=== PATIENT | female | born 1955 | race Caucasian/White ===

== ENCOUNTER 2016-11-18 17:11 | Inpatient (IN) | payer MEDICARE, MEDICAID ==
[2016-11-18] MEDS ORDERED: HYDROMORPHONE INJ 2 MG/ML DISP.SYRIN IV ONE ×2 (17:30→19:30)
[2016-11-18] MEDS ORDERED: IV NS 0.9% 1,000 ML BAG IV ONE ×3 (17:30→21:30)
[2016-11-18] MEDS ORDERED: ONDANSETRON HCL/PF 4 MG/2 ML VIAL IVP ONE (17:30)
[2016-11-18] MEDS ORDERED: ONDANSETRON HCL/PF 4 MG/2 ML VIAL ONE (17:48)
[2016-11-18] MEDS ORDERED: HYDROMORPHONE 1 MG/1 ML DISP.SYRIN ONE ×2 (17:48→19:05)
[2016-11-18] MEDS ORDERED: IV SET PRIMARY 1 EA INFUS.SET MC ONE (17:48)
[2016-11-18] MEDS ORDERED: IV NS 0.9% 1,000 ML ONE ×3 (17:48→21:58)
[2016-11-18] MEDS ORDERED: DILTIAZEM HCL 25 MG IV ONE (17:49)
[2016-11-18] MEDS ORDERED: PIPERACILLIN /TAZOBACTAM 3.375 G in IV D5W 50 ML IV ONE (19:00)
[2016-11-18] MEDS ORDERED: IV SET PRIMARY PUMP SET 1 EA INFUS.SET MC ONE ×2 (19:08→21:59)
[2016-11-18] MEDS ORDERED: SIMV40TA5 PO (19:10)
[2016-11-18] MEDS ORDERED: VENL150C58 PO (19:10)
[2016-11-18] MEDS ORDERED: ALPR0.5T8 PO (19:10)
[2016-11-18] MEDS ORDERED: OMEP20CA10 PO (19:10)
[2016-11-18] MEDS ORDERED: ATEN25TA PO (19:10)
[2016-11-18] MEDS ORDERED: OXYC1TAB72 PO (19:10)
[2016-11-18] MEDS ORDERED: TRAZ-144 PO (19:10)
[2016-11-18] MEDS ORDERED: ACETAMINOPHEN 325 MG TABLET PO PRN (21:30)
[2016-11-18] MEDS ORDERED: ONDANSETRON HCL/PF 4 MG/2 ML VIAL IVP PRN (21:30)
[2016-11-18] MEDS ORDERED: POTASSIUM CL. PREMIX PERIPHER. 50 ML IV SCH (21:30)
[2016-11-18] MEDS ORDERED: NICOTINE PATCH (21MG) 21 MG PATCH.TD24 TD ONE (21:56)
[2016-11-18] MEDS ORDERED: POTASSIUM CL. PREMIX PERIPHER. 50 ML ONE (21:56)
[2016-11-18] MEDS ORDERED: MORPHINE SULFATE INJ 2 MG/ML DISP.SYRIN ONE (21:57)
[2016-11-18] MEDS ORDERED: SECONDARY IV SET 1 EA INFUS.SET MC ONE ×2 (21:58→23:59)
[2016-11-18] MEDS ORDERED: ATENOLOL 25 MG TABLET ONE (21:58)
[2016-11-18] MEDS: ATENOLOL 25 MG TABLET PO SCH (22:20)
[2016-11-18] MEDS: NICOTINE PATCH (21MG) 21 MG PATCH.TD24 TD SCH (22:21)
[2016-11-18] MEDS: MORPHINE SULFATE INJ 2 MG/ML DISP.SYRIN IV PRN (22:24)
[2016-11-18] MEDS ORDERED: METRONIDAZOLE 500MG/ NS 100ML 100 ML IV ONE (22:35)
[2016-11-19] MEDS ORDERED: PIPERACILLIN /TAZOBACTAM 3.375 G in IV D5W 50 ML IV SCH ×2
[2016-11-19] MEDS ORDERED: PIPERACILLIN /TAZOBACTAM 3.375 G VIAL IV ONE ×2 (00:59)
[2016-11-19] MEDS ORDERED: IV D5W 50 ML IV ONE (01:47)
[2016-11-19] MEDS ORDERED: METRONIDAZOLE 500MG/ NS 100ML 100 ML IV ONE (06:05)
[2016-11-19] MEDS ORDERED: MORPHINE SULFATE INJ 2 MG/ML DISP.SYRIN ONE (06:45)
[2016-11-19] MEDS: MORPHINE SULFATE INJ 2 MG/ML DISP.SYRIN IV PRN (06:51)
[2016-11-19] MEDS: METRONIDAZOLE 500MG/ NS 100ML 100 ML IV SCH ×4 (06:52→21:06)
[2016-11-19] MEDS ORDERED: DIATR MEGLU/DIATRIZOATE SODIUM 30 ML BOTTLE (GASTROGRAPHIN) ONE (08:35)
[2016-11-19] MEDS ORDERED: CT SWABBABLE VALVE TRANS SET 1 EA INFUS.SET MC ONE (10:55)
[2016-11-19] MEDS: ATENOLOL 25 MG TABLET PO SCH (10:55)
[2016-11-19] MEDS ORDERED: IV NS 0.9% 250 ML IV ONE (10:55)
[2016-11-19] MEDS ORDERED: IOHEXOL-300 100 ML VIAL IV ONE (10:55)
[2016-11-19] MEDS: PANTOPRAZOLE 40 MG VIAL IV SCH (10:55)
[2016-11-19] MEDS: NICOTINE PATCH (21MG) 21 MG PATCH.TD24 TD SCH (10:56)
[2016-11-19] MEDS: PIPERACILLIN /TAZOBACTAM 3.375 G in IV D5W 50 ML IV SCH ×2 (12:56→17:04)
[2016-11-19] MEDS: LORAZEPAM INJ 2 MG/ML VIAL IVP PRN (14:06)
[2016-11-19] MEDS ORDERED: IV SET PRIMARY PUMP SET 1 EA INFUS.SET MC ONE (19:42)
[2016-11-19] MEDS: IV LR 1000 ML 1,000 ML IV SCH (20:40)
[2016-11-19] MEDS: KETOROLAC TROMETHAMINE INJ 30 MG/ML VIAL IV PRN (21:06)
[2016-11-19] MEDS ORDERED: SECONDARY IV SET 1 EA INFUS.SET MC ONE ×2 (21:18→23:56)
[2016-11-20] MEDS: PIPERACILLIN /TAZOBACTAM 3.375 G in IV D5W 50 ML IV SCH ×5 (00:04→23:30)
[2016-11-20] MEDS: IV LR 1000 ML 1,000 ML IV SCH (03:16)
[2016-11-20] MEDS: METRONIDAZOLE 500MG/ NS 100ML 100 ML IV SCH ×3 (04:19→21:28)
[2016-11-20] MEDS: KETOROLAC TROMETHAMINE INJ 30 MG/ML VIAL IV PRN ×2 (04:19→19:03)
[2016-11-20] MEDS: ATENOLOL 25 MG TABLET PO SCH (09:00)
[2016-11-20] MEDS: PANTOPRAZOLE 40 MG VIAL IV SCH (09:14)
[2016-11-20] MEDS: LORAZEPAM INJ 2 MG/ML VIAL IVP PRN (14:54)
[2016-11-20] MEDS: VENLAFAXINE XR 37.5 MG CAP.SR.24H PO SCH (16:24)
[2016-11-20] MEDS: IV LR 1000 ML 1,000 ML IV PRN (16:25)
[2016-11-20] MEDS: NICOTINE PATCH (21MG) 21 MG PATCH.TD24 TD SCH (16:25)
[2016-11-21] MEDS: KETOROLAC TROMETHAMINE INJ 30 MG/ML VIAL IV PRN ×2 (01:31→18:02)
[2016-11-21] MEDS ORDERED: IV LR 1000 ML 1,000 ML ONE (05:39)
[2016-11-21] MEDS: IV LR 1000 ML 1,000 ML IV PRN (05:45)
[2016-11-21] MEDS: METRONIDAZOLE 500MG/ NS 100ML 100 ML IV SCH ×3 (05:45→21:14)
[2016-11-21] MEDS: PIPERACILLIN /TAZOBACTAM 3.375 G in IV D5W 50 ML IV SCH ×4 (06:50→23:56)
[2016-11-21] MEDS: VENLAFAXINE XR 37.5 MG CAP.SR.24H PO SCH ×2 (09:00→09:20)
[2016-11-21] MEDS: PANTOPRAZOLE 40 MG VIAL IV SCH (09:19)
[2016-11-21] MEDS: ATENOLOL 25 MG TABLET PO SCH (09:20)
[2016-11-21] MEDS: NICOTINE PATCH (21MG) 21 MG PATCH.TD24 TD SCH (09:20)
[2016-11-21] MEDS ORDERED: INDOMETHACIN 50 MG SUPP.RECT ONE (09:32)
[2016-11-21] MEDS ORDERED: IOHEXOL 240MG/ML 100 ML IV ONE (09:32)
[2016-11-21] MEDS ORDERED: FENTANYL PF 250MCG/5ML AMPUL ONE (09:55)
[2016-11-21] MEDS ORDERED: ROCURONIUM BROMIDE 50 MG/5 ML ONE (09:56)
[2016-11-21] MEDS ORDERED: SUCCINYLCHOLINE CHLORIDE 20 MG/ML VIAL ONE (09:56)
[2016-11-21] MEDS ORDERED: SECONDARY IV SET 1 EA INFUS.SET MC ONE ×2 (13:41→22:38)
[2016-11-21] MEDS: POTASSIUM CHLORIDE 20 MEQ TAB.PRT.SR PO SCH ×3 (13:42→17:14)
[2016-11-21] MEDS: Magnesium 1GM/D5W 100ML PREMIX 100 ML IV SCH ×3 (14:43→18:57)
[2016-11-21] MEDS: LORAZEPAM INJ 2 MG/ML VIAL IVP PRN ×2 (14:59→23:56)
[2016-11-22] MEDS: METRONIDAZOLE 500MG/ NS 100ML 100 ML IV SCH ×3 (04:33→21:04)
[2016-11-22] MEDS: PIPERACILLIN /TAZOBACTAM 3.375 G in IV D5W 50 ML IV SCH ×3 (05:13→17:53)
[2016-11-22] MEDS ORDERED: SUCCINYLCHOLINE CHLORIDE 20 MG/ML VIAL ONE (06:54)
[2016-11-22] MEDS ORDERED: FENTANYL PF 250MCG/5ML AMPUL ONE (06:54)
[2016-11-22] MEDS ORDERED: D5W IV SCH (07:00)
[2016-11-22] MEDS ORDERED: POTASSIUM PHOSPHATE MM IV SCH (07:00)
[2016-11-22] MEDS ORDERED: Magnesium 1GM/D5W 100ML PREMIX 100 ML IV SCH (07:30)
[2016-11-22] MEDS ORDERED: BUPIVACAINE 0.25% 75 MG/30 ML VIAL ONE (07:58)
[2016-11-22] MEDS ORDERED: LIDOCAINE 0.5% HCL 50 ML VIAL ONE (07:58)
[2016-11-22] MEDS: POTASSIUM PHOSPHATE MM 15 MMOL in IV D5W 250 ML IV SCH ×2 (08:00→15:24)
[2016-11-22] MEDS: POTASSIUM CL. PREMIX PERIPHER. 50 ML IV SCH ×3 (08:00→10:00)
[2016-11-22] MEDS: VENLAFAXINE XR 37.5 MG CAP.SR.24H PO SCH (08:56)
[2016-11-22] MEDS: PANTOPRAZOLE 40 MG VIAL IV SCH (08:56)
[2016-11-22] MEDS: ATENOLOL 25 MG TABLET PO SCH (08:57)
[2016-11-22] MEDS ORDERED: FENTANYL PF 100MCG/2ML AMPUL ONE ×2 (09:23→12:34)
[2016-11-22] MEDS ORDERED: ROCURONIUM BROMIDE 50 MG/5 ML ONE (09:23)
[2016-11-22] MEDS ORDERED: SEVOFLURANE 250 ML BOTTLE IH ONE (09:52)
[2016-11-22] MEDS ORDERED: CELLULOSE,OXIDIZED 1 EACH EACH MC ONE ×3 (11:03→11:08)
[2016-11-22] MEDS ORDERED: CELLULOSE,OXIDIZED 1 PKT EACH MC ONE (11:04)
[2016-11-22] MEDS ORDERED: HEMOSTATIC MATRIX 10 ML 1 EACH PAD MC ONE (11:06)
[2016-11-22] MEDS ORDERED: KETOROLAC TROMETHAMINE INJ 30 MG/ML VIAL IV ONE (12:24)
[2016-11-22] MEDS ORDERED: DEXAMETHASONE SOD PHOSPHATE 4 MG/ML VIAL IV ONE (12:24)
[2016-11-22] MEDS ORDERED: LIDOCAINE 100MG/5ML DISP SYR IV ONE (12:24)
[2016-11-22] MEDS ORDERED: ROCURONIUM BROMIDE 100 MG/10 ML VIAL IV ONE (12:24)
[2016-11-22] MEDS ORDERED: hydrALAZINE HCL IV 20 MG VIAL IV ONE (12:24)
[2016-11-22] MEDS ORDERED: PROPOFOL 200 MG/20 ML VIAL IV ONE (12:24)
[2016-11-22] MEDS ORDERED: ONDANSETRON HCL/PF 4 MG/2 ML VIAL IVP ONE (12:24)
[2016-11-22] MEDS ORDERED: HYDROMORPHONE INJ 2 MG/ML DISP.SYRIN ONE (12:28)
[2016-11-22] MEDS ORDERED: HYDROMORPHONE MDV 30 MG in IV NS 0.9% 15 ML, PCA TOTAL VOLUME 1 BAG IV PRN ×3 (13:30)
[2016-11-22] MEDS ORDERED: NALOXONE HCL 0.4 MG/ML AMPUL IV PRN (13:30)
[2016-11-22] MEDS ORDERED: SECONDARY IV SET 1 EA INFUS.SET MC ONE (13:38)
[2016-11-22] MEDS ORDERED: SET PCA INFUSE SET 1 EA INFUS.SET MC ONE ×2 (14:22→14:23)
[2016-11-22] MEDS ORDERED: IV NS 0.9% 250 ML IV ONE (14:24)
[2016-11-22] MEDS: NICOTINE PATCH (21MG) 21 MG PATCH.TD24 TD SCH (16:21)
[2016-11-23] MEDS: IV LR 1000 ML 1,000 ML IV PRN ×2 (00:14→08:40)
[2016-11-23] MEDS: PIPERACILLIN /TAZOBACTAM 3.375 G in IV D5W 50 ML IV SCH ×4 (00:22→20:28)
[2016-11-23] MEDS ORDERED: SECONDARY IV SET 1 EA INFUS.SET MC ONE ×2 (04:52→20:24)
[2016-11-23] MEDS: METRONIDAZOLE 500MG/ NS 100ML 100 ML IV SCH ×3 (04:58→21:43)
[2016-11-23] MEDS: PANTOPRAZOLE 40 MG VIAL IV SCH (08:32)
[2016-11-23] MEDS: VENLAFAXINE XR 37.5 MG CAP.SR.24H PO SCH (08:33)
[2016-11-23] MEDS: ATENOLOL 25 MG TABLET PO SCH (08:33)
[2016-11-23] MEDS: NICOTINE PATCH (21MG) 21 MG PATCH.TD24 TD SCH (08:33)
[2016-11-23] MEDS: HEPARIN SODIUM, PORCINE 5000 UNITS/1 ML VIAL SQ SCH ×2 (08:52→21:45)
[2016-11-23] MEDS ORDERED: POTASSIUM CHLORIDE 20 MEQ TAB.PRT.SR PO SCH (12:00)
[2016-11-23] MEDS: Magnesium 1GM/D5W 100ML PREMIX 100 ML IV SCH ×2 (12:12→13:19)
[2016-11-23] MEDS ORDERED: MORPHINE SULFATE INJ 2 MG/ML DISP.SYRIN IV PRN (12:30)
[2016-11-23] MEDS: KETOROLAC TROMETHAMINE INJ 30 MG/ML VIAL IV PRN (15:17)
[2016-11-23] MEDS: ALPRAZOLAM 0.25 MG TABLET PO PRN ×2 (16:58→22:36)
[2016-11-23] MEDS: oxyCODONE IR immediate release 5 MG CAPSULE PO PRN (22:37)
[2016-11-24] MEDS: PIPERACILLIN /TAZOBACTAM 3.375 G in IV D5W 50 ML IV SCH ×5 (01:40→23:15)
[2016-11-24] MEDS: KETOROLAC TROMETHAMINE INJ 30 MG/ML VIAL IV PRN ×2 (01:41→12:05)
[2016-11-24] MEDS: METRONIDAZOLE 500MG/ NS 100ML 100 ML IV SCH ×3 (05:07→21:00)
[2016-11-24] MEDS: oxyCODONE IR immediate release 5 MG CAPSULE PO PRN (06:59)
[2016-11-24] MEDS: HEPARIN SODIUM, PORCINE 5000 UNITS/1 ML VIAL SQ SCH ×2 (08:53→22:18)
[2016-11-24] MEDS: PANTOPRAZOLE 40 MG VIAL IV SCH (08:53)
[2016-11-24] MEDS: NICOTINE PATCH (21MG) 21 MG PATCH.TD24 TD SCH (08:53)
[2016-11-24] MEDS: VENLAFAXINE XR 150 MG CAP.SR.24H PO SCH (08:54)
[2016-11-24] MEDS: ATENOLOL 25 MG TABLET PO SCH (08:54)
[2016-11-24] MEDS ORDERED: VENLAFAXINE XR 150 MG CAP.SR.24H PO SCH (09:00)
[2016-11-24] MEDS: MENTHOL/CETYLPYRD (CEPACOL) 1 LOZ LOZENGE PO PRN (21:00)
[2016-11-24] MEDS: HYDROCODONE/APAP 5/325MG 1 EACH TABLET PO PRN (21:01)
[2016-11-24] MEDS ORDERED: SECONDARY IV SET 1 EA INFUS.SET MC ONE ×2 (21:03→23:09)
[2016-11-24] MEDS: ALPRAZOLAM 0.25 MG TABLET PO PRN (22:16)
[2016-11-25] MEDS: MENTHOL/CETYLPYRD (CEPACOL) 1 LOZ LOZENGE PO PRN ×3 (02:10→10:42)
[2016-11-25] MEDS: HYDROCODONE/APAP 5/325MG 1 EACH TABLET PO PRN ×2 (02:11→06:43)
[2016-11-25] MEDS: METRONIDAZOLE 500MG/ NS 100ML 100 ML IV SCH (04:05)
[2016-11-25] MEDS: PIPERACILLIN /TAZOBACTAM 3.375 G in IV D5W 50 ML IV SCH (05:18)
[2016-11-25] MEDS: VENLAFAXINE XR 150 MG CAP.SR.24H PO SCH (08:15)
[2016-11-25] MEDS: PANTOPRAZOLE 40 MG VIAL IV SCH (08:16)
[2016-11-25] MEDS: NICOTINE PATCH (21MG) 21 MG PATCH.TD24 TD SCH (08:16)
[2016-11-25] MEDS: ATENOLOL 25 MG TABLET PO SCH (08:16)
[2016-11-25] MEDS: HEPARIN SODIUM, PORCINE 5000 UNITS/1 ML VIAL SQ SCH (08:17)
[2016-11-25] MEDS ORDERED: POTASSIUM CHLORIDE 20 MEQ TAB.PRT.SR PO SCH (11:30)
== END 2016-11-25 14:57 | disposition home or self-care (01) | DRG 415 ==
DX: K80.42 Calculus of bile duct with acute cholecystitis without obstruction (principal); E44.0 Moderate protein-calorie malnutrition; E66.9 Obesity, unspecified; E78.5 Hyperlipidemia, unspecified; E87.6 Hypokalemia; F17.210 Nicotine dependence, cigarettes, uncomplicated; I10 Essential (primary) hypertension; Z59.0 Homelessness; M54.5 Low back pain; G89.29 Other chronic pain; E66.01 Morbid (severe) obesity due to excess calories; E11.9 Type 2 diabetes mellitus without complications; F41.9 Anxiety disorder, unspecified; F32.9 Major depressive disorder, single episode, unspecified; I27.2 Other secondary pulmonary hypertension; K21.9 Gastro-esophageal reflux disease without esophagitis; I08.0 Rheumatic disorders of both mitral and aortic valves; Z53.31 Laparoscopic surgical procedure converted to open procedure; Z68.39 Body mass index [BMI] 39.0-39.9, adult; Z87.442 Personal history of urinary calculi; Z96.659 Presence of unspecified artificial knee joint

== ENCOUNTER → 2019-06-01 | Emergency (ER) | payer MEDICAID, MEDICARE, OTHER ==
[~2019-06-01] MED LIST: ACETAMINOPHEN W/ CODEINE#3 1 EA TABLET ONE; ACETAMINOPHEN W/ CODEINE#3 1 EA TABLET PO ONE; ALPR0.5T8 PO; ATEN25TA PO; IBUPROFEN 600 MG TABLET PO ONE; OMEP20CA11 PO; OXYC-121 PO; SIMV40TA5 PO; TRAZ-182 PO; VENL150C58 PO
== END | disposition home or self-care (01) ==
DX: S83.8X2A Sprain of other specified parts of left knee, initial encounter (principal); S63.592A Other specified sprain of left wrist, initial encounter; I10 Essential (primary) hypertension; E78.00 Pure hypercholesterolemia, unspecified; Z96.649 Presence of unspecified artificial hip joint; Z90.710 Acquired absence of both cervix and uterus; Z90.49 Acquired absence of other specified parts of digestive tract; Z98.890 Other specified postprocedural states; W01.0XXA Fall on same level from slipping, tripping and stumbling without subsequent striking against object, initial encounter; Y93.89 Activity, other specified; Y92.480 Sidewalk as the place of occurrence of the external cause; Y99.8 Other external cause status

== ENCOUNTER 2021-05-05 12:02 | Inpatient (IN) | payer OTHER ==
[~2021-05-05] VITALS: Ht 167.6 cm; Wt 110.0 kg
[~2021-05-05 12:02] MED LIST changes: -ACETAMINOPHEN W/ CODEINE#3 1 EA TABLET ONE; -ACETAMINOPHEN W/ CODEINE#3 1 EA TABLET PO ONE; -IBUPROFEN 600 MG TABLET PO ONE; -OMEP20CA11 PO; +OMEP20CA15 PO; +SIMV-49 PO; -SIMV40TA5 PO
[2021-05-05] MEDS ORDERED: ONDANSETRON HCL/PF 4 MG/2 ML VIAL ONE ×2 (12:46→15:43)
--- NOTE | 2021-05-05 12:57 | NUR ---
SHERWINIENEfra FROM HOME TO ER BED 14. AAOX4. NOT IN RESP DISTRESS. AMBULATORY. CAME IN FOR DIARRHEA, NAUSEA AND POOR APETITE FOR THE PAST MONTH. PT REPORTS THAT SHE GET DAILY DIARRHEA AND NOW REPORT BEING NAUSEOUS. WAS AT THE BEDSIDE FOR EVAL. ORDERS RECEIVED, NOTED AND CARIRIED OUT. IV LINE ESTABLISHED ON THE LFA 20G, BLOOD DRAWN AND GIVEN TO PHLEB.
[2021-05-05 12:59] LABS: BASOPHILS # (AUTO) 0.1 K/uL (0.0-0.2); BASOPHILS % (AUTO) 0.7 % (0.0-2.0); EOSINOPHILS % (AUTO) 0.1 % (0.0-6.0); HEMATOCRIT 43 % (33-45); HEMOGLOBIN 14.1 g/dL (11.5-14.8); LYMPHOCYTES % (AUTO) 20.2 % (20.0-44.0); MEAN CORPUSCULAR HGB CONC 33 g/dl (31.0-36.0); MEAN CORPUSCULAR VOLUME 89 fL (82-100); MONOCYTES # (AUTO) 0.8 K/uL (0.1-1.30); MONOCYTES % (AUTO) 5.5 % (2.0-12.0); NEUTROPHILS # (AUTO) 10.9 K/uL (1.8-8.9); NEUTROPHILS % (AUTO) 73.5 % (43.0-81.0); PLATELET COUNT (AUTO) 272 K/uL (150-450); RED BLOOD CELL COUNT(AUTO) 4.88 MIL/uL (4.0-5.2); WHITE BLOOD COUNT (AUTO) 14.8 K/uL (4.3-11.0)
[2021-05-05] MEDS ORDERED: IV NS 0.9% 1,000 ML BAG IV ONE ×2 (13:00→15:30)
[2021-05-05] MEDS ORDERED: ONDANSETRON HCL/PF 4 MG/2 ML VIAL IVP ONE (13:00)
[2021-05-05 13:05] LABS: CALCIUM, SERUM 8.6 mg/dL (8.5-10.1); CARBON DIOXIDE 16 mmol/L (21-32); CHLORIDE 105 mmol/L (98-107); CREATININE 3.5 mg/dL (0.6-1.3); GLUCOSE 88 mg/dL (74-106); POTASSIUM 4.7 mmol/L (3.5-5.1); SODIUM SERUM 140 mmol/L (136-145); UREA NITROGEN, BLOOD 61 mg/dL (7-18)
[2021-05-05 13:11] LABS: ALANINE AMINOTRANSFERASE 42 U/L (12-78); ALKALINE PHOSPHATASE 74 U/L (46-116); ASPARTATE AMINOTRANSFERASE 32 U/L (15-37); BILIRUBIN,DIRECT 0.1 mg/dL (0.0-0.2); BILIRUBIN,TOTAL 0.5 mg/dL (0.2-1.0); LIPASE 134 U/L (73-393); TOTAL PROTEIN, SERUM 7.9 g/dL (6.4-8.2)
--- NOTE | 2021-05-05 14:11 | NUR ---
pt still have no urge to have a BM
--- NOTE | 2021-05-05 14:20 | NUR ---
MADE AWARE THAT BP IS 92/48.
[2021-05-05] MEDS ORDERED: LISI20TA30 PO (15:14)
[2021-05-05] MEDS ORDERED: AMLO-213 PO (15:14)
[2021-05-05] MEDS ORDERED: METF-442 PO (15:14)
[2021-05-05 15:15] LABS: ABG BASE EXCESS -10.9 mmol/L; ABG OXYGEN SATURATION 23.8 % (92.0-98.5); ABG PCO2 43.5 mmHg (35.0-45.0); ABG PH 7.202 (7.350-7.450); COHb 1.5 % (0.5-1.5); MetHb 1.9 % (0.0-1.5); SITE, ABG Other; VENT MODE, BG VBG
--- NOTE | 2021-05-05 15:38 | NUR ---
STOOL SPECIMEN SENT TO LAB
[2021-05-05] MEDS ORDERED: PIPERACILLIN /TAZOBACTAM 3.375 G VIAL IV ONE (15:43)
--- NOTE | 2021-05-05 15:47 | NUR ---
GAVE MOVESHEET TO ADMITTING FOR INSURANCE AUTH
--- NOTE | 2021-05-05 15:53 | NUR ---
XRAY AT BEDSIDE
[2021-05-05] MEDS ORDERED: PIPERACILLIN /TAZOBACTAM 3.375 G in IV D5W 50 ML IV ONE (16:00)
[2021-05-05] MEDS ORDERED: ONDANSETRON HCL/PF 4 MG/2 ML VIAL IV ONE (16:00)
--- NOTE | 2021-05-05 16:50 | NUR ---
spoke with case supervisor and was notified that pt is going to be transferred. will cll back for transfer info
--- NOTE | 2021-05-05 17:25 | NUR ---
called nursing loading supervisor for room
[2021-05-05 17:59] LABS: BILIRUBIN,URINE LARGE (NEGATIVE); COLOR,URINE DARK YELLOW (YELLOW); LEUKOCYTE ESTERASE ,URINE Negative (NEGATIVE); NITRITE, URINE Negative (NEGATIVE); PH,URINE 5.5 (5.0-8.0); PROTEIN,URINE 30 mg/dl (NEGATIVE); UGLUCOSE Negative (NEGATIVE); UROBILINOGEN,URINE 0.2 EU/dL (0.2)
[2021-05-05 18:47] LABS: BACTERIA,URINE Rare /HPF (None Seen); RBC,URINE NONE SEEN /HPF (0-2); SQUAMOUS EPITHELIAL CELL,UR Few /HPF (None Seen); WBC,URINE NONE SEEN /HPF (0-3)
--- NOTE | 2021-05-05 19:28 | NUR ---
ZAKIA, BREAD WRAPPER OPERATOR APPROVED PT TO STAY. DR. SLATER WAS NOTOFIED AND ACCPTED PT FOR ADMISSION. RN WEED CONTROL INSPECTOR MADE AWARE AND ROOM ASSIGNMENT REQUESTED
--- NOTE | 2021-05-05 20:08 | NUR ---
REPORT GIVEN TO RODRIGUEZ HERNANDES FOR ALONDRA
--- NOTE | 2021-05-05 20:18 | NUR ---
RN ADMITTING NOTE RECEIVED PT FROM ER NURSE Prabha KIMBLE ON ROOM AIR. NO RESP DISTRESS OR SOB NOTED. AMBULATORY WITH STEADY GAIT. FULL CODE. DX OF CHRONIC DIARRHEA, ACUTE RENAL FAILURE AND HYPOTENSION. ADMITTED TO ROOM 118-2 ON TELEMETRY. ALL BELONGINGS AT BEDSIDE AND ACCOUNTED BY JAMILA SOTO. (L) FA 20 G SALINE LOCK. VITAL SIGNS WNL, HYPOTENSIVE NOW AT 107/42. AWAITING FOLDER MACHINE MD ORDERS. INITIAL PHYSICAL ASSESSMENT COMPLETED NO ACUTE DISTRESS NOTED AT THIS TIME.
[2021-05-05 20:20] VITALS: BP 107/42
--- NOTE | 2021-05-05 21:30 | NUR ---
RN NOTE ADMITTING ORDERS RECEIVED FROM DR. SLATER. ALL INPUTTED IN EMR, ASSISTED BY CHARGE NURSE RASHIDA. YL AND JOVANNAUIN TO BE STARTED TONIGHT PER MD. AWAITING AM CONSULT FROM HIMSELF AND GI DOCTOR.
[2021-05-05 22:00] VITALS: BP 107/42
[2021-05-05] MEDS: BLOOD SUGAR DIAGNOSTIC 1 EACH STRIP VI SCH (22:00)
[2021-05-05] MEDS ORDERED: *INSULIN REGULAR(HUMULIN R)HUM 100 UNIT/ML VIAL SQ PRN (22:00)
[2021-05-05] MEDS ORDERED: INSULIN REGULAR, HUMAN 100 UNIT/ML 3 ML VIAL SQ PRN (22:00)
[2021-05-05] MEDS ORDERED: DEXTROSE 50%-WATER 50 ML DISP.SYRIN IV PRN (22:00)
--- NOTE | 2021-05-05 22:30 | NUR ---
RN NOTE POC GLUCOSE TESTED PER MD ORDERS. BLOOD GLUCOSE LEVEL OF 58 mg/dL. CHARGE NURSE AWARE. ENCOURAGED TO DRINK 8OZ OF ORANGE JUICE AND JELLO TO PREVENT FURTHER HYPOGLYCEMIA. NO ACUTE DISTRESS NOTED AT THIS TIME
[2021-05-05] MEDS: IV NS 0.9% 1,000 ML IV PRN (22:31)
[2021-05-05] MEDS ORDERED: LEVOFLOXACIN 500 MG /D5W 100ML 100 ML IV ONE (22:42)
[2021-05-05] MEDS ORDERED: METRONIDAZOLE 500MG/ NS 100ML 100 ML IV ONE (22:42)
[2021-05-05] MEDS: METRONIDAZOLE 500MG/ NS 100ML 500 MG in PREMIX 1 EA IV SCH (22:44)
[2021-05-05] MEDS ORDERED: LEVOFLOXACIN 500 MG /D5W 100ML 500 MG in PREMIX 1 EA IV ONE (23:00)
[2021-05-06] VITALS (67 sets, daily range): BP systolic 58–160; BP diastolic 31–100
[2021-05-06] MEDS ORDERED: ONDANSETRON HCL/PF 4 MG/2 ML VIAL IV PRN
[2021-05-06] MEDS ORDERED: HYDROCODONE/APAP 5/325MG TABLET PO PRN
[2021-05-06] MEDS ORDERED: ACETAMINOPHEN 325 MG TABLET PO PRN
[2021-05-06] MEDS ORDERED: ZOLPIDEM TARTRATE 5 MG TABLET PO PRN
[2021-05-06] MEDS ORDERED: TRAZODONE 50 MG TABLET PO PRN (01:00)
--- NOTE | 2021-05-06 01:00 | NUR ---
RN NOTE PT. HYPOTENSIVE 85/45. BP TAKEN 4 DIFFERENT TIMES IN 4 DIFFERENT SITES, SAME READING. PT. PLACED IN [place] POSITION. DR SLATER NOTIFIED. 1L IV BOLUS STARTED. BP TO BE RE-ASSESSED ONCE BOLUS COMPLETED. PER MD, IF STILL HYPOTENSIVE PT. TO BE TRANSFERRED TO ICU FOR LEVOPHED DRIP. NO OTHER S/S OF HYPOTENSION OR DISTRESS NOTED AT THIS TIME.
--- NOTE | 2021-05-06 02:00 | NUR ---
RN NOTE PER DR SLATER, PT REMAINED HYPOTENSIVE, 71/40 AFTER 1L IVF BOLUS. PT. TO BE TRANSFERRED TO ICU FOR LEVOPHED DRIP AND BP CONTINUOS MONITORING
--- NOTE | 2021-05-06 02:15 | NUR ---
RN NOTE BP REMAINS LOW, 68/45, NURSING GROUND CREW LINESMAN AWARE AND ICU BED 252 READY FOR TRANSFER WITH DERRICK RN. PT. TRANSFERRED IN BED PER ACLS PROTOCOL.
--- NOTE | 2021-05-06 03:21 | NUR ---
ELECTRICAL ENGINEERING DRAFTSPERSON NOTE ADMIT PATIENT TO ICU FROM [facility] AT ROOM 252 ALERT ORIENTEDX4 VERBALLY RESPONSIVE BP 65/42 ON ROOM AIR O2;95% IV SITE IS ON LEFT FOREARM AND RIGHT HAND INTACT PATENT NOTIFIED DR SLATER WITH NEW ORDER LEVOPHED 0.1 MCG AND PICC LINE NOTED AND CARRIED OUT.
--- NOTE | 2021-05-06 03:25 | NUR ---
RN NOTE PT. TRANSFERRED TO ICU BED 252 VIA GURNEY. HANDOFF REPORT GIVEN AT BEDSIDE TO DERRICK RN ALL BELONGINGS ACCOUNTED FOR AND CHART HANDED TO NURSE.
[2021-05-06] MEDS ORDERED: NOREPINEPHRINE 8 MG in IV NS 0.9% 242 ML IV PRN (04:00)
--- NOTE | 2021-05-06 04:00 | NUR ---
RN NOTE START A NEW IV LINE ON LEFT HAND 20G WITH GOOD BLOOD RETURN CONTINUE TO MONITOR
--- NOTE | 2021-05-06 04:00 | NUR ---
RN NOTE START A NEW IV LINE ON LEFT HAND 20G WITH GOOD BLOOD RETURN CONTINUE TO MONITOR.
[2021-05-06] MEDS ORDERED: NOREPINEPHRINE 8MG/250ML RTU 250 ML IV ONE (04:01)
--- NOTE | 2021-05-06 04:04 | NUR ---
RN NOTE START LEVOPHED 0.1 MCG BP 75/46 HR 72 CONTINUE TO MONITOR.
[2021-05-06 06:13] LABS: BILIRUBIN,URINE MODERATE (NEGATIVE); COLOR,URINE YELLOW (YELLOW); LEUKOCYTE ESTERASE ,URINE NEGATIVE (NEGATIVE); NITRITE, URINE NEGATIVE (NEGATIVE); PH,URINE 5.5 (5.0-8.0); PROTEIN,URINE TRACE mg/dl (NEGATIVE); UGLUCOSE NEGATIVE (NEGATIVE); UROBILINOGEN,URINE 0.2 EU/dL (0.2)
[2021-05-06] MEDS ORDERED: METRONIDAZOLE 500MG/ NS 100ML 100 ML IV ONE (06:17)
[2021-05-06] MEDS: METRONIDAZOLE 500MG/ NS 100ML 500 MG in PREMIX 1 EA IV SCH ×3 (06:21→20:29)
--- NOTE | 2021-05-06 07:23 | NUR ---
RN NOTE PATIENT REMAINS ON ALERT ORIENTED X4 VERBALLY RESPONSIVE ON ROOM AIR NO SOB NOT ACUTE DISTRESS NOTED ON LEVOPHED,ENDORSE NEXT COMING SHIFT FOR CONTINUATION OF CARE.
[2021-05-06 07:31] LABS: BACTERIA,URINE 2+ /HPF (None Seen); RBC,URINE 0-2 /HPF (0-2); SQUAMOUS EPITHELIAL CELL,UR Many /HPF (None Seen); WBC,URINE 0-2 /HPF (0-3); YEAST,URINE Few /HPF (None Seen)
[2021-05-06 07:58] LABS: BASOPHILS # (AUTO) 0.1 K/uL (0.0-0.2); BASOPHILS % (AUTO) 0.7 % (0.0-2.0); EOSINOPHILS % (AUTO) 0.1 % (0.0-6.0); HEMATOCRIT 39 % (33-45); HEMOGLOBIN 12.8 g/dL (11.5-14.8); LYMPHOCYTES # (AUTO) 2.6 K/uL (0.8-4.8); LYMPHOCYTES % (AUTO) 21.3 % (20.0-44.0); MEAN CORPUSCULAR HGB CONC 33 g/dl (31.0-36.0); MEAN CORPUSCULAR VOLUME 90 fL (82-100); MONOCYTES # (AUTO) 0.9 K/uL (0.1-1.30); MONOCYTES % (AUTO) 7.3 % (2.0-12.0); NEUTROPHILS # (AUTO) 8.6 K/uL (1.8-8.9); NEUTROPHILS % (AUTO) 70.6 % (43.0-81.0); PLATELET COUNT (AUTO) 239 K/uL (150-450); RED BLOOD CELL COUNT(AUTO) 4.35 MIL/uL (4.0-5.2); WHITE BLOOD COUNT (AUTO) 12.1 K/uL (4.3-11.0)
[2021-05-06] MEDS: IV NS 0.9% 1,000 ML IV PRN ×2 (08:00→18:02)
[2021-05-06 08:34] LABS: ALBUMIN 3.4 g/dL (3.4-5.0); BILIRUBIN,TOTAL 0.4 mg/dL (0.2-1.0); CALCIUM, SERUM 7.7 mg/dL (8.5-10.1); CREATININE 2.4 mg/dL (0.6-1.3); POTASSIUM 4.9 mmol/L (3.5-5.1)
[2021-05-06 08:44] LABS: THYROID STIMULATING HORMONE 2.003 uIU/mL (0.358-3.74)
[2021-05-06] MEDS: BLOOD SUGAR DIAGNOSTIC 1 EACH STRIP VI SCH ×4 (08:47→21:19)
[2021-05-06] MEDS: NICOTINE PATCH (21MG) 21 MG PATCH.TD24 TD SCH (09:00)
[2021-05-06] MEDS: PANTOPRAZOLE 40 MG TABLET.DR PO SCH (09:01)
[2021-05-06] MEDS: HEPARIN SODIUM, PORCINE 5000 UNITS/1 ML VIAL SQ SCH ×2 (09:03→20:31)
--- NOTE | 2021-05-06 10:26 | NUR ---
RN NOTE 0715: Received patient awake, A/Ox4. Tolerated room air. With 2 PIVs intact, on Levo 1mcg. 0730: Informed patient re: the risks and benefits of PICC line and need for giving the pressor med but patient still refused, patient aware for the risk of running the pressor on the PIV. 0830: S/E by Dr. Chadwick, with order of IVF, started. Encouraged patient to increase oral fluid intake. Off Levo at this time, will continue to monitor. Per MD, may transfer patient to Tele when tolerated off pressor, CN aware. 0945: Still noted with low BP, restarted Levo on low dose please see IV spreadsheet. 1020: No any significant changes noted at this time. Kept clean, warm and dry. Needs attended. Kept call light at reach.
[2021-05-06] MEDS ORDERED: Magnesium 1GM/D5W 100ML PREMIX PIGGYBACK IV ONE (11:00)
[2021-05-06] MEDS ORDERED: LEVOFLOXACIN 500 MG /D5W 100ML 500 MG in PREMIX 1 EA IV SCH ×2 (11:30→23:00)
[2021-05-06] MEDS: Magnesium 1GM/D5W 100ML PREMIX 100 ML IV SCH ×6 (11:39→16:51)
[2021-05-06] MEDS ORDERED: PEG 3350/NA SULF,BICARB,CL/KCL 4,000 ML BOTTLE PO ONE (12:00)
--- NOTE | 2021-05-06 18:37 | NUR ---
RN NOTE Remained on pressors for episodes of low BP. Continue monitoring and titrating pressor. Kept clean, warm and dry. Needs attended. Kept call light at reach. Done with Md replacement, awaiting Mg level result.
--- NOTE | 2021-05-06 19:45 | NUR ---
RN NOTES RECEIVED PATIENT AWAKE ALERT ORIENTED X 4 VERBALLY RESPONSIVE SITTING ON BEDSIDE COMMODE. PATIENT IS DRINKING GOLYTELY AT THIS TIME FOR COLONOSCOPY PROCEDURE. NO RESPIRATORY DISTRESS SATURATION 93% ON ROOM AIR. ST ON MONITOR. IV SITE ON LT HAND REMOVED PER PATIENT IT IS PAINFUL WHEN FLUSHED, RIGHT HAND G 20 INTACT AND PATENT RUNNING WITH NS @ 125 ML.HR AND LEVOPHED @ 0.02 MCG/KG/MIN, WILL TITRATED ORDERED. PATIENT HAD AN ORDER OF PICC LINE BUR PATIENT REFUSED, MIDLINE ENCOURAGED AND OFFERED THEN PATIENT AGREED. KEPT PATIENT COMFORTABLE IN BED. ALL NEED PLACED CLOSER TO PATIENT. WILL CONTINUE POC.
[2021-05-06] MEDS: LEVOFLOXACIN 250 MG /D5W 50 ML 250 MG in PREMIX 1 EA IV SCH (20:30)
--- NOTE | 2021-05-06 20:35 | NUR ---
RN NOTES MIDLINE INSERTED BY PICC LINE NURSE WITH GOOD BLOOD RETURN.
[2021-05-06] MEDS ORDERED: VENLAFAXINE XR 150 MG CAP.SR.24H PO SCH (21:00)
[2021-05-06] MEDS: SIMVASTATIN 20 MG TABLET PO SCH (21:04)
[2021-05-07] VITALS (45 sets, daily range): BP systolic 54–140; BP diastolic 21–107
--- NOTE | 2021-05-07 00:10 | NUR ---
RN NOTES PATIENT WENT TO BSC MULTIPLE TIMES WITH YELLOWISH WATERY WITH SMALL PARTICLES OUTPUT. ENCOURAGED TO FINISHED GOLYTELY LONG SHE CAN TOLERATE TO CLEAR UP. PER PATIENT SHE WILL STOP TAKING IT NOW SO SHE CAN SLEEP CAUSE ITS BEEN BOTHERING HER. ALL NEEDS ATTENDED. WLL MONITOR.
[2021-05-07] MEDS: IV NS 0.9% 1,000 ML IV PRN ×3 (01:36→18:06)
[2021-05-07 04:28] LABS: BASOPHILS # (AUTO) 0.1 K/uL (0.0-0.2); BASOPHILS % (AUTO) 0.6 % (0.0-2.0); EOSINOPHILS % (AUTO) 0.2 % (0.0-6.0); HEMATOCRIT 33 % (33-45); LYMPHOCYTES # (AUTO) 2.1 K/uL (0.8-4.8); LYMPHOCYTES % (AUTO) 24.5 % (20.0-44.0); MEAN CORPUSCULAR HGB CONC 33 g/dl (31.0-36.0); MEAN CORPUSCULAR VOLUME 90 fL (82-100); MONOCYTES # (AUTO) 0.5 K/uL (0.1-1.30); MONOCYTES % (AUTO) 6.5 % (2.0-12.0); NEUTROPHILS # (AUTO) 5.8 K/uL (1.8-8.9); NEUTROPHILS % (AUTO) 68.2 % (43.0-81.0); PLATELET COUNT (AUTO) 190 K/uL (150-450); RED BLOOD CELL COUNT(AUTO) 3.68 MIL/uL (4.0-5.2); WHITE BLOOD COUNT (AUTO) 8.4 K/uL (4.3-11.0)
[2021-05-07 04:45] LABS: BILIRUBIN,TOTAL 0.3 mg/dL (0.2-1.0); CALCIUM, SERUM 7.4 mg/dL (8.5-10.1); CREATININE 1.3 mg/dL (0.6-1.3); PHOSPHORUS 2.7 mg/dL (2.5-4.9); POTASSIUM 4.5 mmol/L (3.5-5.1)
[2021-05-07] MEDS: METRONIDAZOLE 500MG/ NS 100ML 500 MG in PREMIX 1 EA IV SCH ×3 (06:18→21:20)
[2021-05-07] MEDS: PANTOPRAZOLE 40 MG TABLET.DR PO SCH (07:30)
[2021-05-07] MEDS: VENLAFAXINE XR 75 MG CAP.SR.24H PO SCH ×2 (08:00→10:21)
[2021-05-07] MEDS ORDERED: VENLAFAXINE XR 150 MG CAP.SR.24H PO SCH ×2 (08:00→09:00)
[2021-05-07] MEDS: BLOOD SUGAR DIAGNOSTIC 1 EACH STRIP VI SCH ×4 (08:04→22:20)
[2021-05-07] MEDS: NICOTINE PATCH (21MG) 21 MG PATCH.TD24 TD SCH (08:05)
[2021-05-07] MEDS: HEPARIN SODIUM, PORCINE 5000 UNITS/1 ML VIAL SQ SCH ×2 (08:22→21:23)
[2021-05-07] MEDS ORDERED: COSYNTROPIN 0.25 MG/VIAL VIAL IV ONE (08:30)
--- NOTE | 2021-05-07 08:52 | NUR ---
RN NOTE 47748: Received patient resting in bed. A/Ox4. Tolerated room air. With TIMI midline intact, Levo 0.04mcg and IVF infusing as ordered. Remained NPO for Colonoscopy. SR on the monitor. Noted with clear stool. 0830: S/E by Dr. Chadwick, made aware patient is prepped for Colonoscopy but no time yet. 0850: No any significant changes noted at this time. Kept clean, warm and dry. Needs attended.
[2021-05-07] MEDS: METFORMIN 500 MG TABLET PO SCH ×2 (08:59→17:00)
[2021-05-07] MEDS ORDERED: MIDAZOLAM HCL 2 MG/2ML VIAL ONE (15:53)
--- NOTE | 2021-05-07 16:27 | NUR ---
RN NOTE Patient was placed to OR but back to room, procedure not done due to episodes of low BP, back to room BP 99/69. Patient aware for the plan of care, Anesthesiologist explained to patient. Anesthesiologist spoke with Dr. Chadwick as well. Patient is A/Ox4 despite of Versed given. Will continue to monitor.
--- NOTE | 2021-05-07 18:27 | NUR ---
RN NOTE VSS at this time. Remained off pressors. Placed on lcear liquids diet. Kept clean, warm and dry. Needs attended. Kept call light at reach.
--- NOTE | 2021-05-07 19:30 | NUR ---
RN NOTES RECEIVED PATIENT ASLEEP ON BED . POST PONE COLONOSCOPY DUE TO HYPOTENSION ON 70'S PER ANESTHESIOLOGIST. PATIENT IS BREATHING EVEN AND UNLABORED IN ROOM AIR, VSS AT THIS TIME WITHOUT PRESSOR, SR ON MONITOR. IV SITE ON TIMI MIDLINE G 18. WITH NS @ 125 ML/HR INTACT AND PATENT CALL LIGHT WITHIN PATIENT REACH. WILL CLOSELY MONITOR..
[2021-05-07] MEDS: LEVOFLOXACIN 250 MG /D5W 50 ML 250 MG in PREMIX 1 EA IV SCH (21:18)
[2021-05-07] MEDS: SIMVASTATIN 20 MG TABLET PO SCH (21:19)
--- NOTE | 2021-05-07 22:20 | NUR ---
RN NOTES PATIENT IS AWAKE , MEDICINE ADMINISTERED ORDERED. OFFERED TO HAVE BED BATH AND AGREED.
[2021-05-07] MEDS: IV D5/ 0.9% NACL 1,000 ML IV PRN (23:00)
[2021-05-07] MEDS ORDERED: LEVOFLOXACIN 250 MG /D5W 50 ML 250 MG in PREMIX 1 EA IV SCH (23:00)
[2021-05-08] VITALS (22 sets, daily range): BP systolic 102–159; BP diastolic 29–78
[2021-05-08 04:26] LABS: BASOPHILS % (AUTO) 0.4 % (0.0-2.0); EOSINOPHILS % (AUTO) 0.4 % (0.0-6.0); HEMATOCRIT 32 % (33-45); HEMOGLOBIN 10.8 g/dL (11.5-14.8); LYMPHOCYTES # (AUTO) 2.5 K/uL (0.8-4.8); LYMPHOCYTES % (AUTO) 33.7 % (20.0-44.0); MEAN CORPUSCULAR HGB CONC 34 g/dl (31.0-36.0); MEAN CORPUSCULAR VOLUME 89 fL (82-100); MONOCYTES # (AUTO) 0.5 K/uL (0.1-1.30); MONOCYTES % (AUTO) 6.3 % (2.0-12.0); NEUTROPHILS # (AUTO) 4.4 K/uL (1.8-8.9); NEUTROPHILS % (AUTO) 59.2 % (43.0-81.0); PLATELET COUNT (AUTO) 163 K/uL (150-450); RED BLOOD CELL COUNT(AUTO) 3.57 MIL/uL (4.0-5.2); WHITE BLOOD COUNT (AUTO) 7.4 K/uL (4.3-11.0)
[2021-05-08 04:34] LABS: CALCIUM, SERUM 7.5 mg/dL (8.5-10.1); CREATININE 0.9 mg/dL (0.6-1.3); POTASSIUM 3.8 mmol/L (3.5-5.1)
[2021-05-08 04:37] LABS: MAGNESIUM 0.9 mg/dL (1.8-2.4)
[2021-05-08] MEDS: IV D5/ 0.9% NACL 1,000 ML IV PRN ×2 (05:46→10:18)
[2021-05-08] MEDS: METRONIDAZOLE 500MG/ NS 100ML 500 MG in PREMIX 1 EA IV SCH ×3 (05:50→22:02)
[2021-05-08] MEDS: Magnesium 1GM/D5W 100ML PREMIX 100 ML IV SCH ×6 (06:38→12:02)
[2021-05-08] MEDS: PANTOPRAZOLE 40 MG TABLET.DR PO SCH (06:38)
--- NOTE | 2021-05-08 06:59 | NUR ---
RN NOTES PATIENT ASLEEP WELL NO SIGNIFICANT CHANGES. DENIES PAIN. AFEBRILE. VSS WITHOUT PRESSOR. NO ACUTE RESPIRATORY DISTRESS IN ROOM AIR SATURATION >95%., BSC USED NEEDED. NO BM TODAY. STILL NEED STOOL FOR STOOL OB. WILL ENDORSED TO AM SHIFT. KEPT PT CLEAN AND DRY. CALL LIGHT KEPT WITHIN EASY REACH.
[2021-05-08] MEDS: BLOOD SUGAR DIAGNOSTIC 1 EACH STRIP VI SCH ×4 (08:06→21:57)
[2021-05-08] MEDS: NICOTINE PATCH (21MG) 21 MG PATCH.TD24 TD SCH ×2 (08:37→08:58)
[2021-05-08] MEDS: METFORMIN 500 MG TABLET PO SCH (08:37)
[2021-05-08] MEDS: HEPARIN SODIUM, PORCINE 5000 UNITS/1 ML VIAL SQ SCH ×2 (08:57→21:23)
--- NOTE | 2021-05-08 09:03 | NUR ---
aviculturist notes seen and examined by dr. ramirez, order for NPO. orders made and carried out. will continue to monitor.
[2021-05-08 09:12] LABS: IRON, SERUM 108 ug/dl (50-175); TOTAL IRON BINDING CAPACITY 275 ug/dl (250-450)
--- NOTE | 2021-05-08 14:00 | NUR ---
agricultural adviser notes procedure was cancelled, Dr. ramirez made aware, per MD to resume diet and advance as tolerated. orders made and carried out.will continue to monitor.
--- NOTE | 2021-05-08 18:00 | NUR ---
curriculum development manager notes patient transferred to 329-1, report given to RODRIGUEZ romero, patient in no signs of distress. all belongings with patient and medication.
--- NOTE | 2021-05-08 18:45 | NUR ---
Pt. arrived in the unit via a wheelchair and wheeled by staff from ICU. Pt. with an IV of D% NS @ 100cc/hr. Pt. is laert/ oriented x4. V/S taken BP 139/67, OH 83, Temp 98.0, RR 20.
--- NOTE | 2021-05-08 19:15 | NUR ---
RN NOTES: RECEIVED AWAKE ON BED, ON SEMI FOWLERS POSITION, A/OX4, ORIENTED TO UNIT AND STAFF, TIMI-ML INTACT AND PATENT, ON IVF OF D5NS AT 100 ML/HR TO BE CONSUMED THEN D/C; BREATHING SPONTANEOUSLY IN ROOM AIR SPO2-98%, NO PAIN OR DISCOMFORT.ABLE TO AMBULATE GOING TO THE BATHROOM. - FALL SAFETY AND ASPIRATION PRECAUTION OBSERVED, BED LOW AND LOCKED, CALL LIGHT KEPT WITHIN EASY REACH.NO SIGN OF SOB OR RESPIRATORY DISCOMFORT. Addendum: 05/08/21 at 2226 by DENEEN ROGEL RN LATE ENTRY FOR BEGINNING OF THE SHIFT: FOR 1914- BEGINNING OF THE SHIFT UPON ENDORSEMENT
[2021-05-08] MEDS: LEVOFLOXACIN 250 MG /D5W 50 ML 250 MG in PREMIX 1 EA IV SCH (21:22)
[2021-05-08] MEDS: SIMVASTATIN 20 MG TABLET PO SCH (21:22)
[2021-05-08] MEDS ORDERED: FLUCONAZOLE (100 MG) 100 MG TABLET PO SCH (21:30)
--- NOTE | 2021-05-08 22:00 | NUR ---
RN NOTES : BLOOD SUGAR CHECKED-99, WILL CONTINUE TO MONITOR FOR SIGN OF HYPER AND HYPOGLYCEMIA.
--- NOTE | 2021-05-08 22:27 | NUR ---
RN NOTES: AWAKE IN BETWEEN, NEEDS ATTENDED, GIVEN WARM BLANKET, KEPT COMFORTABLE IN BED.CALL LIGHT KEPT WITHIN EASY REACH.
--- NOTE | 2021-05-09 00:16 | NUR ---
RN NOTES: CALLED TO SEE THE PATIENT SHE VERBALIZED SHE FEEL ANXIOUS, OFFERED TRAZADONE AND AMBIEN BUT SHE SAID SHE DONT WANNA TAKE THOSE MEDICATION, RN TRIED TO LET HER EXPRESSED HER THOUGHTS AND CONCERN, SHE VERBALIZED SHE DID NOT GET ANY GOOD EXPLANATION OF WHAT IS GOING ON WITH HER, SHE WAS SUPPOSE TO HAVE A PROCEDURE IN ICU AND IT WAS POSTPONED, SHE WANTS TO SPEAK WITH THE DOCTOR SOMEONE WHO CAN EXPLAIN TO HER WHAT IS GOING ON IN HER HEART. RN STAYED WITH HER UNTIL SHE CALM DOWN AND LISTENED TO HER, THEN SHE SAID SHE DONT WANT TO TAKE ANY MEDICATION SHE WILL TRY TO SLEEP, RN TOLD HER WE WILL TRY TO ATTEND TO ALL HER CONCERN IN THE MORNING, WILL COMMUNICATE TO CN AND INCOMING SHIFT.
--- NOTE | 2021-05-09 01:29 | NUR ---
RN NOTES: ABLE TO SLEEP AND REST, KEPT ON CLOSE VISUAL CHECK.
[2021-05-09] MEDS: METRONIDAZOLE 500MG/ NS 100ML 500 MG in PREMIX 1 EA IV SCH (06:18)
[2021-05-09] MEDS: BLOOD SUGAR DIAGNOSTIC 1 EACH STRIP VI SCH (06:45)
[2021-05-09 07:37] LABS: BASOPHILS % (AUTO) 0.7 % (0.0-2.0); EOSINOPHILS % (AUTO) 0.1 % (0.0-6.0); HEMATOCRIT 35 % (33-45); HEMOGLOBIN 11.9 g/dL (11.5-14.8); LYMPHOCYTES # (AUTO) 1.9 K/uL (0.8-4.8); LYMPHOCYTES % (AUTO) 25.6 % (20.0-44.0); MEAN CORPUSCULAR HGB CONC 34 g/dl (31.0-36.0); MEAN CORPUSCULAR VOLUME 89 fL (82-100); MONOCYTES # (AUTO) 0.5 K/uL (0.1-1.30); MONOCYTES % (AUTO) 6.5 % (2.0-12.0); NEUTROPHILS % (AUTO) 67.1 % (43.0-81.0); PLATELET COUNT (AUTO) 196 K/uL (150-450); RED BLOOD CELL COUNT(AUTO) 3.99 MIL/uL (4.0-5.2); WHITE BLOOD COUNT (AUTO) 7.4 K/uL (4.3-11.0)
--- NOTE | 2021-05-09 07:37 | NUR ---
RN NOTES: -DUE IV MEDS GIVEN, PATIENT FEELS BETTER SHE WAS ABLE TO SLEEP, BLOOD SUGAR-125, NO INSULIN GIVEN PER SCALE, FALL AND SAFETY PRECAUTION OBSERVED, ENDORSED FOR CONTINUITY OF CARE.
[2021-05-09 08:00] VITALS: BP 141/70
[2021-05-09 08:19] LABS: CALCIUM, SERUM 8.2 mg/dL (8.5-10.1); CREATININE 0.9 mg/dL (0.6-1.3); MAGNESIUM 1.6 mg/dL (1.8-2.4); PHOSPHORUS 2.3 mg/dL (2.5-4.9); POTASSIUM 3.2 mmol/L (3.5-5.1)
[2021-05-09] MEDS ORDERED: FLUC200T PO (08:19)
[2021-05-09] MEDS ORDERED: LEVO250S3 PO (08:19)
[2021-05-09] MEDS ORDERED: AMLODIPINE BESYLATE 5 MG TABLET PO SCH (09:00)
[2021-05-09] MEDS ORDERED: Magnesium 1GM/D5W 100ML PREMIX 100 ML IV SCH (10:30)
[2021-05-09] MEDS ORDERED: POTASSIUM CHLORIDE 20 MEQ TAB.PRT.SR PO SCH (10:30)
[2021-05-09] MEDS ORDERED: SIMVASTATIN 20 MG TABLET PO SCH (22:00)
== END 2021-05-09 14:15 | disposition home or self-care (01) | DRG 391 ==
LOC: ER 12:02 → TELE1 19:45 → ICU 05-06 03:13 → MED 05-08 18:39
PROVIDERS: ADMIT Internal Medicine; ATTEND Internal Medicine
PROC: 05HA33Z Insertion of Infusion Device into Left Brachial Vein, Percutaneous Approach (ICD-10-PCS; principal; 2021-05-06)
PROC: 0DJ08ZZ Inspection of Upper Intestinal Tract, Via Natural or Artificial Opening Endoscopic (ICD-10-PCS; 2021-05-08)
DX: K52.9 Noninfective gastroenteritis and colitis, unspecified (principal); N17.0 Acute kidney failure with tubular necrosis; R57.1 Hypovolemic shock; E87.2 Acidosis; E86.0 Dehydration; I10 Essential (primary) hypertension; Z90.710 Acquired absence of both cervix and uterus; E78.5 Hyperlipidemia, unspecified; E11.22 Type 2 diabetes mellitus with diabetic chronic kidney disease; I12.9 Hypertensive chronic kidney disease with stage 1 through stage 4 chronic kidney disease, or unspecified chronic kidney disease; Z20.822 Contact with and (suspected) exposure to COVID-19; N18.9 Chronic kidney disease, unspecified; Z90.49 Acquired absence of other specified parts of digestive tract; Z98.890 Other specified postprocedural states; Z96.643 Presence of artificial hip joint, bilateral; Z79.84 Long term (current) use of oral hypoglycemic drugs; Z79.899 Other long term (current) drug therapy; K42.9 Umbilical hernia without obstruction or gangrene; I70.8 Atherosclerosis of other arteries; K57.90 Diverticulosis of intestine, part unspecified, without perforation or abscess without bleeding; F32.9 Major depressive disorder, single episode, unspecified; I35.0 Nonrheumatic aortic (valve) stenosis; Z72.0 Tobacco use
CPT/HCPCS: 36415; 36600; 71045-TC; 80048-TC; 80053-TC; 80061-TC; 80076-TC; 81001; 82533; 82550-TC; 82803-TC; 82962-TC; 83540-TC; 83605-TC; 83690-TC; 83735-TC; 84100-TC; 84443-TC; 84484-TC; 85025-TC; 87040-TC; 87045-TC; 87081-TC; 87086-TC; 93307-TC; A4216; C9803; G0378; J0834; J1644; J1815; J1956; J2250; J2405; J2543; J3475; J7030; J7042; J7050; J7060

== ENCOUNTER 2021-05-22 18:25 | Inpatient (IN) | payer OTHER ==
[~2021-05-22] VITALS: Ht 167.6 cm; Wt 104.3 kg
[~2021-05-22 18:25] MED LIST changes: -ALPR0.5T8 PO; +AMLO-213 PO; -ATEN25TA PO; +FLUC200T PO; +LEVO250S3 PO; +METF-442 PO; -OXYC-121 PO
[2021-05-22 22:07] LABS: BASOPHILS # (AUTO) 0.1 K/uL (0.0-0.2); BASOPHILS % (AUTO) 0.5 % (0.0-2.0); EOSINOPHILS % (AUTO) 0.3 % (0.0-6.0); HEMATOCRIT 38 % (33-45); HEMOGLOBIN 12.7 g/dL (11.5-14.8); LYMPHOCYTES # (AUTO) 2.7 K/uL (0.8-4.8); LYMPHOCYTES % (AUTO) 20.9 % (20.0-44.0); MEAN CORPUSCULAR HGB CONC 33 g/dl (31.0-36.0); MEAN CORPUSCULAR VOLUME 88 fL (82-100); MONOCYTES # (AUTO) 0.8 K/uL (0.1-1.30); MONOCYTES % (AUTO) 5.9 % (2.0-12.0); NEUTROPHILS # (AUTO) 9.4 K/uL (1.8-8.9); NEUTROPHILS % (AUTO) 72.4 % (43.0-81.0); PLATELET COUNT (AUTO) 269 K/uL (150-450); RED BLOOD CELL COUNT(AUTO) 4.32 MIL/uL (4.0-5.2); WHITE BLOOD COUNT (AUTO) 12.9 K/uL (4.3-11.0)
[2021-05-22 22:27] LABS: BILIRUBIN,URINE LARGE (NEGATIVE); COLOR,URINE YELLOW (YELLOW); LEUKOCYTE ESTERASE ,URINE Negative (NEGATIVE); NITRITE, URINE Negative (NEGATIVE); PROTEIN,URINE >=300 mg/dl (NEGATIVE); UGLUCOSE Negative (NEGATIVE)
[2021-05-22] MEDS ORDERED: ONDANSETRON HCL/PF 4 MG/2 ML VIAL IVP ONE (22:30)
[2021-05-22] MEDS ORDERED: IV NS 0.9% 1,000 ML BAG IV ONE (22:30)
[2021-05-22 22:32] LABS: ALBUMIN 3.3 g/dL (3.4-5.0); BILIRUBIN,DIRECT 0.3 mg/dL (0.0-0.2); BILIRUBIN,TOTAL 1.2 mg/dL (0.2-1.0); CALCIUM, SERUM 8.5 mg/dL (8.5-10.1); TOTAL PROTEIN, SERUM 6.9 g/dL (6.4-8.2)
[2021-05-22 22:36] LABS: BACTERIA,URINE Rare /HPF (None Seen); RBC,URINE NONE SEEN /HPF (0-2); SQUAMOUS EPITHELIAL CELL,UR Few /HPF (None Seen); WBC,URINE NONE SEEN /HPF (0-3)
[2021-05-22 22:36] LABS: POTASSIUM 2.7 mmol/L (3.5-5.1)
[2021-05-22] MEDS ORDERED: POTASSIUM CHLORIDE 10 MEQ/50 ML PREMIXED IVPB FOR PERIPHERAL LINE IV ONE (23:00)
[2021-05-22] MEDS ORDERED: ONDANSETRON HCL/PF 4 MG/2 ML VIAL ONE (23:05)
[2021-05-22] MEDS ORDERED: POTASSIUM CL. PREMIX PERIPHER. 200 ML ONE (23:05)
[2021-05-23] MEDS ORDERED: FLAGYL/NS RTU 500 MG/100 ML PIGGYBACK IV ONE
[2021-05-23] MEDS ORDERED: CIPROFLOXACIN IV RTU 400 MG in PREMIX 1 EA IV SCH
[2021-05-23] MEDS ORDERED: METRONIDAZOLE 500MG/ NS 100ML 100 ML IV ONE (00:42)
[2021-05-23] MEDS ORDERED: CIPROFLOXACIN IV RTU 200 ML IV ONE (00:42)
[2021-05-23] MEDS ORDERED: MAG HYDROX/AL HYDROX/SIMETH 30 ML UDC PO PRN (02:00)
[2021-05-23] MEDS ORDERED: ZOLPIDEM TARTRATE 5 MG TABLET PO PRN (02:00)
[2021-05-23] MEDS ORDERED: Z GUARD REMEDY 2 OZ OINT TP PRN (02:00)
[2021-05-23] MEDS ORDERED: MAGNESIUM HYDROXIDE 30 ML UDC PO PRN (02:00)
[2021-05-23] MEDS ORDERED: ONDANSETRON HCL/PF 4 MG/2 ML VIAL IVP PRN (02:00)
[2021-05-23] MEDS ORDERED: ONDANSETRON HCL/PF 4 MG/2 ML VIAL IV ONE (02:30)
[2021-05-23 04:10] VITALS: BP 134/64
[2021-05-23] MEDS: ENOXAPARIN SODIUM 40 MG/0.4 ML DISP.SYRIN SQ SCH ×2 (05:18→21:47)
[2021-05-23 08:00] VITALS: BP 112/60
[2021-05-23] MEDS: PANTOPRAZOLE 40 MG VIAL IV SCH (08:45)
[2021-05-23] MEDS: METRONIDAZOLE 500MG/ NS 100ML 500 MG in PREMIX 1 EA IV SCH ×2 (09:13→21:31)
[2021-05-23] MEDS: CIPROFLOXACIN IV RTU 400 MG in PREMIX 1 EA IV SCH (13:22)
[2021-05-23 16:00] VITALS: BP 117/61
[2021-05-23 20:00] VITALS: BP 115/63
[2021-05-23] MEDS: SIMVASTATIN 20 MG TABLET PO SCH (21:46)
[2021-05-23] MEDS: TRAZODONE 50 MG TABLET PO PRN (21:46)
[2021-05-24] MEDS: CIPROFLOXACIN IV RTU 400 MG in PREMIX 1 EA IV SCH ×2 (01:08→14:53)
[2021-05-24] MEDS: METRONIDAZOLE 500MG/ NS 100ML 500 MG in PREMIX 1 EA IV SCH ×3 (04:11→18:49)
[2021-05-24 06:36] LABS: BASOPHILS # (AUTO) 0.1 K/uL (0.0-0.2); BASOPHILS % (AUTO) 0.7 % (0.0-2.0); EOSINOPHILS % (AUTO) 0.3 % (0.0-6.0); HEMATOCRIT 36 % (33-45); HEMOGLOBIN 12.1 g/dL (11.5-14.8); LYMPHOCYTES # (AUTO) 2.1 K/uL (0.8-4.8); LYMPHOCYTES % (AUTO) 22.4 % (20.0-44.0); MEAN CORPUSCULAR HGB CONC 34 g/dl (31.0-36.0); MEAN CORPUSCULAR VOLUME 88 fL (82-100); MONOCYTES # (AUTO) 0.7 K/uL (0.1-1.30); MONOCYTES % (AUTO) 7.4 % (2.0-12.0); NEUTROPHILS # (AUTO) 6.4 K/uL (1.8-8.9); NEUTROPHILS % (AUTO) 69.2 % (43.0-81.0); PLATELET COUNT (AUTO) 222 K/uL (150-450); RED BLOOD CELL COUNT(AUTO) 4.03 MIL/uL (4.0-5.2); WHITE BLOOD COUNT (AUTO) 9.2 K/uL (4.3-11.0)
[2021-05-24 08:00] VITALS: BP 100/56
[2021-05-24] MEDS: VENLAFAXINE XR 150 MG CAP.SR.24H PO SCH (08:12)
[2021-05-24] MEDS: PANTOPRAZOLE 40 MG VIAL IV SCH (08:13)
[2021-05-24] MEDS: METFORMIN 500 MG TABLET PO SCH ×2 (08:13→17:50)
[2021-05-24] MEDS: ACETAMINOPHEN 325 MG TABLET PO PRN (08:25)
[2021-05-24 08:30] LABS: CALCIUM, SERUM 7.9 mg/dL (8.5-10.1); PHOSPHORUS 3.1 mg/dL (2.5-4.9)
[2021-05-24 08:38] LABS: MAGNESIUM 0.8 mg/dL (1.8-2.4); POTASSIUM 2.5 mmol/L (3.5-5.1)
[2021-05-24] MEDS ORDERED: AMLODIPINE BESYLATE 5 MG TABLET PO SCH (09:00)
[2021-05-24] MEDS ORDERED: POTASSIUM CL. PREMIX PERIPHER. 50 ML IV SCH (13:30)
[2021-05-24] MEDS ORDERED: POTASSIUM CHLORIDE 20 MEQ TAB.PRT.SR PO ONE (13:30)
[2021-05-24 16:00] VITALS: BP 120/64
[2021-05-24] MEDS: Potassium Chloride 10 MEQ, LIDOCAINE HCL/PF 1% 1 ML in IV D5W 50 ML IV SCH ×4 (16:09→20:51)
[2021-05-24 16:41] LABS: CALCIUM, SERUM 7.5 mg/dL (8.5-10.1); PHOSPHORUS 2.3 mg/dL (2.5-4.9)
[2021-05-24 16:51] LABS: MAGNESIUM 0.5 mg/dL (1.8-2.4); POTASSIUM 2.7 mmol/L (3.5-5.1)
[2021-05-24] MEDS ORDERED: Magnesium 1GM/D5W 100ML PREMIX 100 ML IV SCH (17:30)
[2021-05-24 20:00] VITALS: BP 119/62
[2021-05-24] MEDS: SIMVASTATIN 20 MG TABLET PO SCH (21:04)
[2021-05-24] MEDS: ENOXAPARIN SODIUM 40 MG/0.4 ML DISP.SYRIN SQ SCH (21:09)
[2021-05-24] MEDS: Magnesium 1GM/D5W 100ML PREMIX 100 ML IV SCH ×2 (21:53→22:59)
[2021-05-25] MEDS: Magnesium 1GM/D5W 100ML PREMIX 100 ML IV SCH ×4 (01:09→10:44)
[2021-05-25] MEDS: METRONIDAZOLE 500MG/ NS 100ML 500 MG in PREMIX 1 EA IV SCH ×2 (01:10→10:09)
[2021-05-25] MEDS: CIPROFLOXACIN IV RTU 400 MG in PREMIX 1 EA IV SCH ×2 (02:54→13:31)
[2021-05-25] MEDS: ACETAMINOPHEN 325 MG TABLET PO PRN (03:51)
[2021-05-25 06:11] LABS: BASOPHILS % (AUTO) 0.4 % (0.0-2.0); EOSINOPHILS % (AUTO) 0.2 % (0.0-6.0); HEMATOCRIT 31 % (33-45); HEMOGLOBIN 10.6 g/dL (11.5-14.8); LYMPHOCYTES # (AUTO) 1.8 K/uL (0.8-4.8); LYMPHOCYTES % (AUTO) 22.7 % (20.0-44.0); MEAN CORPUSCULAR HGB CONC 34 g/dl (31.0-36.0); MEAN CORPUSCULAR VOLUME 88 fL (82-100); MONOCYTES # (AUTO) 0.8 K/uL (0.1-1.30); MONOCYTES % (AUTO) 9.4 % (2.0-12.0); NEUTROPHILS # (AUTO) 5.5 K/uL (1.8-8.9); NEUTROPHILS % (AUTO) 67.3 % (43.0-81.0); PLATELET COUNT (AUTO) 220 K/uL (150-450); WHITE BLOOD COUNT (AUTO) 8.1 K/uL (4.3-11.0)
[2021-05-25 06:33] LABS: CALCIUM, SERUM 7.8 mg/dL (8.5-10.1); CREATININE 0.9 mg/dL (0.6-1.3); MAGNESIUM 1.5 mg/dL (1.8-2.4); PHOSPHORUS 2.9 mg/dL (2.5-4.9)
[2021-05-25 07:55] LABS: POTASSIUM 2.8 mmol/L (3.5-5.1)
[2021-05-25 08:00] VITALS: BP 119/59
[2021-05-25] MEDS: PANTOPRAZOLE 40 MG VIAL IV SCH (08:42)
[2021-05-25] MEDS: METFORMIN 500 MG TABLET PO SCH ×2 (08:43→16:37)
[2021-05-25] MEDS: LOSARTAN POTASSIUM 50 MG TABLET PO SCH (08:44)
[2021-05-25] MEDS: VENLAFAXINE XR 150 MG CAP.SR.24H PO SCH (08:47)
[2021-05-25] MEDS: POTASSIUM CHLORIDE 20 MEQ TAB.PRT.SR PO SCH ×3 (08:47→10:28)
[2021-05-25] MEDS: IV D5/0.45 NACL 1,000 ML IV PRN (13:31)
[2021-05-25] MEDS: POTASSIUM CL. PREMIX PERIPHER. 50 ML IV SCH ×4 (13:52→16:13)
[2021-05-25 15:32] LABS: OCCULT BLOOD STOOL NEGATIVE (NEGATIVE)
[2021-05-25 16:00] VITALS: BP 135/71
[2021-05-25] MEDS: METRONIDAZOLE 500 MG TABLET PO SCH (17:08)
[2021-05-25 20:00] VITALS: BP 120/53
[2021-05-25] MEDS: TRAZODONE 50 MG TABLET PO PRN (20:28)
[2021-05-25] MEDS: ENOXAPARIN SODIUM 40 MG/0.4 ML DISP.SYRIN SQ SCH (20:31)
[2021-05-25] MEDS: SIMVASTATIN 20 MG TABLET PO SCH (22:14)
[2021-05-26] MEDS: CIPROFLOXACIN IV RTU 400 MG in PREMIX 1 EA IV SCH (01:38)
[2021-05-26] MEDS: METRONIDAZOLE 500 MG TABLET PO SCH ×2 (01:46→09:44)
[2021-05-26] MEDS: IV D5/0.45 NACL 1,000 ML IV PRN (05:54)
[2021-05-26 06:47] LABS: BASOPHILS % (AUTO) 0.5 % (0.0-2.0); EOSINOPHILS % (AUTO) 0.3 % (0.0-6.0); HEMATOCRIT 32 % (33-45); LYMPHOCYTES # (AUTO) 1.8 K/uL (0.8-4.8); LYMPHOCYTES % (AUTO) 28.1 % (20.0-44.0); MEAN CORPUSCULAR HGB CONC 35 g/dl (31.0-36.0); MEAN CORPUSCULAR VOLUME 88 fL (82-100); MONOCYTES # (AUTO) 0.5 K/uL (0.1-1.30); MONOCYTES % (AUTO) 7.4 % (2.0-12.0); NEUTROPHILS # (AUTO) 4.2 K/uL (1.8-8.9); NEUTROPHILS % (AUTO) 63.7 % (43.0-81.0); PLATELET COUNT (AUTO) 244 K/uL (150-450); RED BLOOD CELL COUNT(AUTO) 3.64 MIL/uL (4.0-5.2); WHITE BLOOD COUNT (AUTO) 6.6 K/uL (4.3-11.0)
[2021-05-26 07:12] LABS: CALCIUM, SERUM 8.5 mg/dL (8.5-10.1); CREATININE 0.9 mg/dL (0.6-1.3); MAGNESIUM 1.5 mg/dL (1.8-2.4); PHOSPHORUS 3.3 mg/dL (2.5-4.9); POTASSIUM 3.3 mmol/L (3.5-5.1)
[2021-05-26 08:00] VITALS: BP 120/57
[2021-05-26] MEDS ORDERED: POTASSIUM CHLORIDE 20 MEQ TAB.PRT.SR PO ONE (08:00)
[2021-05-26] MEDS: Magnesium 1GM/D5W 100ML PREMIX 100 ML IV SCH ×2 (08:03→08:57)
[2021-05-26] MEDS: VENLAFAXINE XR 150 MG CAP.SR.24H PO SCH (08:56)
[2021-05-26] MEDS: PANTOPRAZOLE 40 MG VIAL IV SCH (08:56)
[2021-05-26] MEDS: METFORMIN 500 MG TABLET PO SCH (08:56)
[2021-05-26 08:57] VITALS: BP 120/57
[2021-05-26] MEDS: LOSARTAN POTASSIUM 50 MG TABLET PO SCH (08:57)
[2021-05-26] MEDS ORDERED: LEVO500T90 PO (08:57)
== END 2021-05-26 13:20 | disposition home or self-care (01) | DRG 391 ==
LOC: ER 18:31 → TELE 05-23 03:38 → MED 05-23 08:49
PROVIDERS: ADMIT Nurse Practitioner Acute Care; ATTEND Internal Medicine
PROC: 05HB33Z Insertion of Infusion Device into Right Basilic Vein, Percutaneous Approach (ICD-10-PCS; principal; 2021-05-24)
PROC: 05H533Z Insertion of Infusion Device into Right Subclavian Vein, Percutaneous Approach (ICD-10-PCS; 2021-05-24)
PROC: B546ZZA Ultrasonography of Right Subclavian Vein, Guidance (ICD-10-PCS; 2021-05-24)
DX: K57.32 Diverticulitis of large intestine without perforation or abscess without bleeding (principal); K65.9 Peritonitis, unspecified; D68.9 Coagulation defect, unspecified; K21.9 Gastro-esophageal reflux disease without esophagitis; E11.9 Type 2 diabetes mellitus without complications; E78.5 Hyperlipidemia, unspecified; E83.42 Hypomagnesemia; E87.6 Hypokalemia; E80.6 Other disorders of bilirubin metabolism; Z90.49 Acquired absence of other specified parts of digestive tract; Z90.710 Acquired absence of both cervix and uterus; I10 Essential (primary) hypertension; Z98.1 Arthrodesis status; D72.829 Elevated white blood cell count, unspecified; F32.9 Major depressive disorder, single episode, unspecified; E66.9 Obesity, unspecified; Z68.37 Body mass index [BMI] 37.0-37.9, adult; Z79.84 Long term (current) use of oral hypoglycemic drugs; I35.0 Nonrheumatic aortic (valve) stenosis; Z20.822 Contact with and (suspected) exposure to COVID-19; F17.210 Nicotine dependence, cigarettes, uncomplicated
CPT/HCPCS: 36415; 80048-TC; 80061-TC; 80076-TC; 81001; 82272-TC; 83690-TC; 83735-TC; 84100-TC; 85025-TC; 85730-TC; 87081-TC; A4216; C9113; C9803; G0378; J0744; J1650; J2405; J3475; J3480; J3490; J7030; J7040; J7060

== ENCOUNTER 2022-04-10 16:33 | Inpatient (IN) | payer MEDICARE, OTHER ==
[~2022-04-10] VITALS: Ht 167.6 cm; Wt 110.7 kg
[~2022-04-10 16:33] MED LIST changes: -FLUC200T PO; -LEVO250S3 PO; +LEVO500T90 PO
--- NOTE | 2022-04-10 17:00 | NUR ---
RECIVED PT 67 YRS FEMALE CAME FROM HOME WITH LARGE BM DIARRHEA LIQUDE BLOODY STOOL
[2022-04-10] MEDS ORDERED: PANTOPRAZOLE 40 MG VIAL IV ONE (17:30)
[2022-04-10] MEDS ORDERED: IV NS 0.9% 1,000 ML IV ONE (17:30)
[2022-04-10] MEDS ORDERED: HYDROMORPHONE 1 MG/1 ML DISP.SYRIN IV ONE ×2 (17:30→22:00)
--- NOTE | 2022-04-10 17:35 | NUR ---
SEEN BY DR. TORRES ORDER WAS GIVEN
--- NOTE | 2022-04-10 18:00 | NUR ---
STOOL SPACEMENT SENT TO LAB AND BLOOD DROW AND SENT TO LAB
--- NOTE | 2022-04-10 18:30 | NUR ---
TO CT SCAN OF ABDOMIN
[2022-04-10] MEDS ORDERED: HYDROMORPHONE 1 MG/1 ML DISP.SYRIN ONE ×2 (18:46→22:56)
[2022-04-10] MEDS ORDERED: PANTOPRAZOLE 40 MG VIAL ONE (18:46)
--- NOTE | 2022-04-10 19:35 | NUR ---
JOSE LÓPEZ SENT TO LAB
--- NOTE | 2022-04-10 19:40 | NUR ---
HAND OFF TO PAUL FRIAS
--- NOTE | 2022-04-10 19:42 | NUR ---
COVID SWAB COLLECTED AND SENT TO LAB
[2022-04-10 19:58] LABS: BASOPHILS # (AUTO) 0.1 K/uL (0.0-0.2); BASOPHILS % (AUTO) 0.4 % (0.0-2.0); EOSINOPHILS % (AUTO) 0.2 % (0.0-6.0); HEMATOCRIT 40 % (33-45); LYMPHOCYTES # (AUTO) 1.9 K/uL (0.8-4.8); LYMPHOCYTES % (AUTO) 11.8 % (20.0-44.0); MEAN CORPUSCULAR HGB CONC 32 g/dl (31.0-36.0); MEAN CORPUSCULAR VOLUME 83 fL (82-100); MONOCYTES # (AUTO) 0.2 K/uL (0.1-1.30); MONOCYTES % (AUTO) 1.1 % (2.0-12.0); NEUTROPHILS # (AUTO) 14.1 K/uL (1.8-8.9); NEUTROPHILS % (AUTO) 86.5 % (43.0-81.0); PLATELET COUNT (AUTO) 322 K/uL (150-450); WHITE BLOOD COUNT (AUTO) 16.3 K/uL (4.3-11.0)
[2022-04-10 20:10] LABS: ALBUMIN 4.1 g/dL (3.4-5.0); BILIRUBIN,DIRECT 0.2 mg/dL (0.0-0.2); BILIRUBIN,TOTAL 0.9 mg/dL (0.2-1.0); CREATININE 1.7 mg/dL (0.6-1.3); TOTAL PROTEIN, SERUM 8.2 g/dL (6.4-8.2)
[2022-04-10 20:15] LABS: POTASSIUM 2.7 mmol/L (3.5-5.1)
--- NOTE | 2022-04-10 20:15 | NUR ---
CRITICAL LAB POTASSIUM 2.7 NOIFIED
--- NOTE | 2022-04-10 20:38 | NUR ---
urine collected and sent to lab
[2022-04-10 20:45] LABS: OCCULT BLOOD STOOL POSITIVE (NEGATIVE)
[2022-04-10] MEDS ORDERED: ONDANSETRON HCL/PF 4 MG/2 ML VIAL ONE (20:48)
--- NOTE | 2022-04-10 20:58 | NUR ---
CALLED [facility], PAGED LILLI BRAVO DNP
[2022-04-10] MEDS ORDERED: ONDANSETRON HCL/PF - ER 4 MG/2 ML VIAL IV ONE (21:00)
[2022-04-10] MEDS ORDERED: IV LR 1000 ML 1,000 ML IV ONE (21:00)
[2022-04-10] MEDS ORDERED: POTASSIUM CHLORIDE 20 MEQ TAB.PRT.SR PO ONE (21:00)
[2022-04-10 21:08] LABS: BILIRUBIN,URINE MODERATE (NEGATIVE); COLOR,URINE YELLOW (YELLOW); LEUKOCYTE ESTERASE ,URINE NEGATIVE (NEGATIVE); NITRITE, URINE POSITIVE (NEGATIVE); PROTEIN,URINE 100 mg/dl (NEGATIVE); UGLUCOSE NEGATIVE (NEGATIVE)
[2022-04-10] MEDS ORDERED: POTASSIUM CL. PREMIX PERIPHER. 50 ML ONE (21:16)
[2022-04-10 21:19] LABS: RBC,URINE 21-50 /HPF (0-2)
[2022-04-10 21:20] LABS: BACTERIA,URINE 2+ /HPF (None Seen); SQUAMOUS EPITHELIAL CELL,UR 21-50 /HPF (None Seen); WBC,URINE 0-2 /HPF (0-3)
[2022-04-10] MEDS ORDERED: POTASSIUM CHLORIDE 10 MEQ/50 ML PREMIXED IVPB FOR PERIPHERAL LINE IV ONE (21:30)
--- NOTE | 2022-04-10 21:52 | NUR ---
PAGED EPIC AGAIN FOR ADMISSION
--- NOTE | 2022-04-10 23:12 | NUR ---
called to give report. rn in isolation room and will call back.
--- NOTE | 2022-04-10 23:51 | NUR ---
REPORT GIVEN TO KATHARINA
[2022-04-11] VITALS: BP 152/67
[2022-04-11] MEDS ORDERED: Z GUARD REMEDY 4 OZ OINT TP PRN
[2022-04-11] MEDS ORDERED: ZOLPIDEM TARTRATE 5 MG TABLET PO PRN
[2022-04-11] MEDS ORDERED: ACETAMINOPHEN 325 MG TABLET PO PRN
[2022-04-11] MEDS ORDERED: TRAZODONE 50 MG TABLET PO PRN
--- NOTE | 2022-04-11 | NUR ---
2355 Received patient a/o x4 from ED via gurney in stable condition with complaints of abdominal pain, nausea ,vomiting and diarrhea.DX: Possible GI Bleed.VSS.Respiration even and unlabored with O2 2LNC. Tele ST with occasional pvc.Oriented to unit.Care explained.Verbalized understanding.Kept safe and comfortable.Call light at bedside.
--- NOTE | 2022-04-11 00:03 | NUR ---
PT TRANSPORTED TO ROOM 110 VIA RNEY ON RAILROAD ACCOUNTANT PER ACLS IN STABLE CONDITION
[2022-04-11] MEDS ORDERED: CEFTRIAXONE 1 G VIAL ONE (00:16)
[2022-04-11] MEDS: IV LR 1000 ML 1,000 ML IV PRN ×2 (00:22→17:42)
[2022-04-11] MEDS ORDERED: INSULIN REGULAR, HUMAN 100 UNIT/ML 3 ML VIAL SQ PRN (00:30)
[2022-04-11] MEDS ORDERED: DEXTROSE 50%-WATER 50 ML DISP.SYRIN IV PRN (00:30)
[2022-04-11] MEDS ORDERED: VANCOMYCIN 2 GM in IV D5W 500 ML IV ONE (00:30)
[2022-04-11] MEDS ORDERED: CEFTRIAXONE 1 G in IV D5W 50 ML IV SCH (00:30)
[2022-04-11] MEDS ORDERED: IV NS 0.9% 250 ML IV PRN (01:00)
[2022-04-11] MEDS ORDERED: VANCOMYCIN 1 GM VIAL ONE (02:00)
[2022-04-11 02:13] LABS: HEMATOCRIT 40 % (33-45); HEMOGLOBIN 12.6 g/dL (11.5-14.8); MEAN CORPUSCULAR HGB CONC 32 g/dl (31.0-36.0); MEAN CORPUSCULAR VOLUME 84 fL (82-100); PLATELET COUNT (AUTO) 313 K/uL (150-450); RED BLOOD CELL COUNT(AUTO) 4.73 MIL/uL (4.0-5.2); WHITE BLOOD COUNT (AUTO) 25.7 K/uL (4.3-11.0)
[2022-04-11 02:27] LABS: BASOPHILS % (AUTO) 0.1 % (0.0-2.0); LYMPHOCYTES # (AUTO) 1.2 K/uL (0.8-4.8); LYMPHOCYTES % (AUTO) 4.8 % (20.0-44.0); MONOCYTES # (AUTO) 1.5 K/uL (0.1-1.30); MONOCYTES % (AUTO) 5.9 % (2.0-12.0); NEUTROPHILS # (AUTO) 22.8 K/uL (1.8-8.9); NEUTROPHILS % (AUTO) 89.2 % (43.0-81.0)
[2022-04-11] MEDS: HYDROMORPHONE 1 MG/1 ML DISP.SYRIN IV PRN ×6 (04:07→22:43)
--- NOTE | 2022-04-11 06:00 | NUR ---
END NOTE Patient ambulated to restroom with minimal assist.Had large watery bloody stools 2x. Had nausea no vomiting noted.Verbalized feels blood sugar low FSBS 123.Tolerating po liquids.IVF infusing well.Antibiotics administered as ordered.Was medicated for abdominal pain.Verbalized relief.
[2022-04-11 06:50] LABS: BASOPHILS % (AUTO) 0.2 % (0.0-2.0); HEMATOCRIT 39 % (33-45); HEMOGLOBIN 12.4 g/dL (11.5-14.8); LYMPHOCYTES % (AUTO) 4.1 % (20.0-44.0); MEAN CORPUSCULAR HGB CONC 32 g/dl (31.0-36.0); MEAN CORPUSCULAR VOLUME 83 fL (82-100); MONOCYTES % (AUTO) 8.1 % (2.0-12.0); NEUTROPHILS # (AUTO) 21.7 K/uL (1.8-8.9); NEUTROPHILS % (AUTO) 87.6 % (43.0-81.0); PLATELET COUNT (AUTO) 314 K/uL (150-450); RED BLOOD CELL COUNT(AUTO) 4.66 MIL/uL (4.0-5.2); WHITE BLOOD COUNT (AUTO) 24.7 K/uL (4.3-11.0)
[2022-04-11 07:30] LABS: ALBUMIN 3.4 g/dL (3.4-5.0); BILIRUBIN,TOTAL 0.6 mg/dL (0.2-1.0); CALCIUM, SERUM 8.3 mg/dL (8.5-10.1); CREATININE 1.7 mg/dL (0.6-1.3); PHOSPHORUS 4.8 mg/dL (2.5-4.9); POTASSIUM 3.4 mmol/L (3.5-5.1); TOTAL PROTEIN, SERUM 7.5 g/dL (6.4-8.2)
[2022-04-11] MEDS ORDERED: PANTOPRAZOLE 40 MG TABLET.DR PO SCH (07:30)
[2022-04-11 07:36] LABS: THYROID STIMULATING HORMONE 4.113 uIU/mL (0.358-3.74)
[2022-04-11 08:04] LABS: MAGNESIUM 0.9 mg/dL (1.8-2.4)
--- NOTE | 2022-04-11 08:05 | NUR ---
RECEIVED A CALL FROM VIKY AT THE LAB AND RELAYED CRITICAL RESULT OF MAGNESIUM 0.9. NURSE CLARITA INFORMED
[2022-04-11] MEDS: BLOOD SUGAR DIAGNOSTIC 1 EACH STRIP IN SCH ×4 (08:20→21:49)
--- NOTE | 2022-04-11 08:50 | NUR ---
ROCEPHIN GIVEN 00:16 PHARMACY NOTIFIED WAS TOLD THEY WERE GOING TO ADJUST THE ORDER
[2022-04-11] MEDS: AMLODIPINE BESYLATE 5 MG TABLET PO SCH ×2 (09:00→09:06)
[2022-04-11] MEDS ORDERED: POTASSIUM CHLORIDE 20 MEQ POWDER PACKET PO ONE (09:00)
[2022-04-11] MEDS: VENLAFAXINE XR 150 MG CAP.SR.24H PO SCH (09:07)
[2022-04-11] MEDS ORDERED: LEVO25TA9 PO (09:30)
[2022-04-11] MEDS ORDERED: ASPI-1169 PO (09:30)
[2022-04-11] MEDS ORDERED: LISI20TA30 PO (09:30)
[2022-04-11] MEDS ORDERED: DOCU-141 PO (09:30)
[2022-04-11] MEDS ORDERED: FURO20TA4 PO (09:30)
[2022-04-11] MEDS ORDERED: GABA300C PO (09:30)
[2022-04-11] MEDS ORDERED: APIX5TAB PO (09:30)
[2022-04-11] MEDS ORDERED: POTA10TA21 PO (09:31)
--- NOTE | 2022-04-11 10:00 | NUR ---
roni mckeon engraver hand soft metals seen patient but patient wanted real md not engraver hand soft metals to see her,per roni ndiaye will see patient today.
[2022-04-11] MEDS: PANTOPRAZOLE 40 MG VIAL IV SCH ×2 (10:12→21:30)
[2022-04-11] MEDS: ONDANSETRON HCL/PF 4 MG/2 ML VIAL IVP PRN ×2 (10:25→16:46)
--- NOTE | 2022-04-11 11:00 | NUR ---
RN open note Patient is in bed , very agitated, c/o nausea , vomiting twice this morning , asking for the doctor , complaining that doctor not visiting her and that no one understanding her , asking for the patient advocate, called to the public message service supervisor , , public message service supervisor asked to ask the patient the reason for advocate . Patient couldn't stated the reason . Dr Hall got to the patient side , explained to the patient the plan of care , patient calmed down . patient is on O2 2 lL via n/c , breathing non labored , . Diaper was changed , patient is having bloody diarrhea , Dr Hall aware , stool culture is pending. Patient has mid line of the SONNY that ghot clotted , discontinued , started peripheral line of the right wrist 24 G , saline lock, LR running at 100 ml/hr . bed side rail are up , bed is at lowest position, call light within reach.
[2022-04-11] MEDS: Magnesium 1GM/D5W 100ML PREMIX 100 ML IV SCH ×3 (12:04→14:38)
[2022-04-11] MEDS ORDERED: METOCLOPRAMIDE HCL 10 MG/2 ML VIAL IV PRN (12:30)
--- NOTE | 2022-04-11 15:38 | NUR ---
midline not flushing patient wanted kenneth carr to put line. kenneth carr made aware,he will be in [place] tonite.nursing sup notified.
--- NOTE | 2022-04-11 15:38 | NUR ---
patient positve for campybacter in stool relayed to dr. ndiaye.
--- NOTE | 2022-04-11 18:23 | NUR ---
RN closing note Patient is in bed , alert , oriented times 3, on O 2 via n/c 2 L , breathing non labored . Patient has continues pain of the abdomen , Dilaudid 1 mg IV was administered every 3 hr , last infusion 1820 . Patient has watery and bloody diarrhea , 6 times since 11 am ,on clear liquid diet but refused any food . Complained of constant nausea , vomited 3 times today, Zofran was administered every 6 hr Iv .Patient has Iv access of the right wrist 24 G , has LR running at 100 ml/hr . bed is at lowest position . bed side rails are up, call light within reach.
[2022-04-11 20:00] VITALS: BP 106/57
--- NOTE | 2022-04-11 20:39 | NUR ---
occupational health coordinator Opening Note Pt received in bed, awake, A&O x4, appears to be in distress. Pt expresses anxiety regarding her midline insertion; feels anxious about having to wait for Dr. Blake to insert the midline for her. Pt on NC 2L with O2sat of 93%; noted to have SOB but no other s/s of resp distress, no cough, non-labored and equal breathing. Pt recently ambulated to use restroom and was noted to get more SOB. Pt attached to external monitor, ST with HR of 111. IV access on right hand 24G with LR running at 100 ml/hr. Bed in lowest position, call light within reach, side rails up x2. Will continue to monitor throughout the night.
[2022-04-11] MEDS: CEFTRIAXONE 1 G in IV D5W 50 ML IV SCH (21:31)
[2022-04-11] MEDS: ATORVASTATIN 10 MG TABLET PO SCH (21:31)
--- NOTE | 2022-04-11 22:43 | NUR ---
RN Note Pt reports of a 9/10 abdominal pain that's described as aching. Pt requests for hydromorphone; pt administered hydromorphone 1 mg. Will monitor for effectiveness.
[2022-04-12] VITALS: BP 95/54
[2022-04-12] MEDS: VANCOMYCIN 1 GM in IV D5W 250 ML IV SCH (01:33)
[2022-04-12 02:30] LABS: HEMATOCRIT 30 % (33-45); MEAN CORPUSCULAR HGB CONC 33 g/dl (31.0-36.0); MEAN CORPUSCULAR VOLUME 82 fL (82-100); PLATELET COUNT (AUTO) 208 K/uL (150-450); RED BLOOD CELL COUNT(AUTO) 3.67 MIL/uL (4.0-5.2); WHITE BLOOD COUNT (AUTO) 13.1 K/uL (4.3-11.0)
[2022-04-12 04:00] VITALS: BP 104/46
[2022-04-12] MEDS: ONDANSETRON HCL/PF 4 MG/2 ML VIAL IVP PRN (06:36)
--- NOTE | 2022-04-12 06:36 | NUR ---
RN NOTE PT REPORTS OF FEELING NAUSEOUS WITH NO EPISODE OF VOMITING. PT ADMINISTERED ONDANSETRON 4 MG.
--- NOTE | 2022-04-12 06:47 | NUR ---
RESEARCH PHARMACIST CLOSING NOTE PT REMAINS IN BED, AWAKE, A&O X4; WAS NOT ABLE TO SLEEP THROUGHOUT THE NIGHT; HAD PERIODS OF RESTLESSNESS. REMAINS ON NC AT 2L BUT WAS NOTED TO BE TAKIGN OFF NC; O2SAT RANGED FROM 93%-95% THROUGHOUT THE NIGHT WITH PERIODS OF SOB; NO OTHER S/S OF RESP DISTRESS, NO COUGH, HAS EQUAL AND NON-LABORED BREATHING. ATTACHED TO EXTERNAL MONITOR, ST WITH HR RANGING FROM 102-111. RIGHT HAND 24G INTACT AND PATENT; HAS LR RUNNING AT 100 ML/HR. ALL DUE MEDS AND FLUIDS ADMINISTERED DURING THE NIGHT. BED IN LOWEST POSITION, CALL LIGHT WITHIN REACH, SIDE RAILS UP X2. STILL AWAITING FOR MIDLINE TO BE INSERTED BY LILLI BRAVO. WILL ENDORSE TO DAYSHIFT NURSE TO CONTINUE CARE.
--- NOTE | 2022-04-12 07:30 | NUR ---
TERRA COTTA MOLD MAKER OPENING NOTES: RECEIVED PATIENT IN BED. AAO X 4. IV ACCESS ON RIGHT HAND INFUSING LR @ 100 ML/HR. NO SOB AND NO RESOIRATORY DISTRESS NOTED AT THIS TIME. SR WITH HR OF 96. WILL CONTINUE TOMONTOR FOR PAIN AND PRESCRIBE ORDERED MEDS NEEDED. WILL PROVIDE COMFORT AND WILL CONTINUE TO MONITOR. WILL STILL WAIT FOR DR. BRAVO TO INSERT HER MIDLINE. REFUSED ANYONE ELSE TO INSERT IT EXCEPT DR. BRAVO. BRP PRIVILEGES AND AMBULATORY WITH NO ASSISTANCE. WILL CONTINUE TO [facility] FOR SAFETY.
[2022-04-12 08:00] VITALS: BP 123/65
[2022-04-12] MEDS: BLOOD SUGAR DIAGNOSTIC 1 EACH STRIP IN SCH ×4 (08:04→23:06)
[2022-04-12] MEDS: PANTOPRAZOLE 40 MG VIAL IV SCH (08:33)
[2022-04-12] MEDS: VENLAFAXINE XR 150 MG CAP.SR.24H PO SCH (08:33)
[2022-04-12] MEDS: HYDROMORPHONE 1 MG/1 ML DISP.SYRIN IV PRN ×2 (08:34→14:23)
[2022-04-12] MEDS: AMLODIPINE BESYLATE 5 MG TABLET PO SCH (09:00)
[2022-04-12 09:23] LABS: BASOPHILS # (AUTO) 0.1 K/uL (0.0-0.2); BASOPHILS % (AUTO) 0.5 % (0.0-2.0); EOSINOPHILS % (AUTO) 0.3 % (0.0-6.0); HEMATOCRIT 32 % (33-45); HEMOGLOBIN 10.3 g/dL (11.5-14.8); LYMPHOCYTES % (AUTO) 8.5 % (20.0-44.0); MEAN CORPUSCULAR HGB CONC 32 g/dl (31.0-36.0); MEAN CORPUSCULAR VOLUME 82 fL (82-100); MONOCYTES # (AUTO) 0.6 K/uL (0.1-1.30); MONOCYTES % (AUTO) 5.7 % (2.0-12.0); NEUTROPHILS # (AUTO) 9.7 K/uL (1.8-8.9); PLATELET COUNT (AUTO) 195 K/uL (150-450); WHITE BLOOD COUNT (AUTO) 11.4 K/uL (4.3-11.0)
--- NOTE | 2022-04-12 09:30 | NUR ---
RN NOTES DUE MEDS GIVEN
[2022-04-12 09:35] LABS: CREATININE 1.1 mg/dL (0.6-1.3); PHOSPHORUS 3.2 mg/dL (2.5-4.9)
[2022-04-12 09:40] LABS: POTASSIUM 2.8 mmol/L (3.5-5.1)
[2022-04-12 12:00] VITALS: BP 110/53
[2022-04-12] MEDS ORDERED: MAGNESIUM OXIDE 400 MG TABLET PO ONE (14:00)
[2022-04-12] MEDS: POTASSIUM CHLORIDE 20 MEQ TAB.PRT.SR PO ONE ×2 (14:15→14:45)
--- NOTE | 2022-04-12 14:23 | NUR ---
RN NOTES: PT C/O PAIN ON HER LOWER ABDOMINAL AREA. PULLED OUT MED HYDROMORPHONE 1 MG/ML ORDERED BUT NOTED THAT HER IV SITE IS NOT WORKING. PATIENT PREVIOUSLY DECLINED TO HAVE ANOTHER PROVIDER INSERT HER MIDLINE EXCEPT DR. BRAVO. ANOTHER NURSE TRIED TO REINSERT PERIPHERAL IV WITH NO SUCCESS MD INFORMED
[2022-04-12 16:00] VITALS: BP 101/75
--- NOTE | 2022-04-12 16:09 | NUR ---
RN NOTES DR. SPARROW NOTIFIED, PT HAS NO IV LINE IN PLACE. AND HAS BEEN COMPLAINING OF PAIN BUT DOES NOT WANT TO DO HER MIDLINE EXCEPT DR. LILLI BRAVO. ATTEMPTED TO PUT AN IV ACCESS BY SOON CHARGE NURSE BUT WAS UNSUCCESSFUL. [facility] - NURSING MAINTENANCE OF WAY FOREMAN AWARE. MR. EMERALD MORALEZ AWARE AND RECEIVED A CALL FROM THE PT'S SISTER.
--- NOTE | 2022-04-12 16:10 | NUR ---
RN NOTES SPOKE WITH DR. LILLI BRAVO ABOUT THE SITUATION, AND PER HIM, HE WILL COME THIS EVENING, AND HE WILL GO STRAIGHT TO THE PATIENT'S ROOM FOR MIDLINE PLACEMENT.
--- NOTE | 2022-04-12 16:20 | NUR ---
RN NOTES SPOKE WITH THE PATIENT AND HER SISTER ABOUT DR. LILLI BRAVO. PT'S SISTER, ASKING FOR A CRUDE OIL DRIVER TO DO IT, EXPLAINED TO HER THAT CRUDE OIL DRIVER DOES NOT DO MIDLINE INSERTION, THEY ONLY DRAW BLOOD FOR LABORATORY.
--- NOTE | 2022-04-12 18:42 | NUR ---
COMMISSIONING SPECIALIST CLOSING NOTE PT IN BED, AWAKE, A&O X4; HAD PERIODS OF RESTLESSNESS. NO RESPIRATORY DISTRESS NOTED THE ENTIRE SHIFT. NO COUGH AND NO UNLABORED BREATHING. SR ON TELE MONITOR RANGING FROM 88-98. RIGHT HAND SALINE LOCK IS NOT PATENT BUT MD AWARE FOR MIDLINE PLACEMENT TONIGHT BY LILLI BRAVO. ALL DUE MEDS AND FLUIDS ADMINISTERED DURING THE SHIFT. BED IN LOWEST POSITION, CALL LIGHT WITHIN REACH, SIDE RAILS UP X2. WILL ENDORSE TO INCOMING NURSE FOR CONTINUED MONITORING
[2022-04-12 20:00] VITALS: BP 136/80
--- NOTE | 2022-04-12 22:31 | NUR ---
labor relations or personnel negotiator Opening Note Pt received in bed, awake, A&O x4, appears anxious and restless, saying how she's not getting the proper care that she needs and how she's been waiting for a long time to get a midline inserted. Pt on 2L NC, appears SOB but no s/s of other resp distress; non-labored breathing, breathing equal; current O2sat is 95%. Pt attached to external monitor ST with HR of 103. Right hand 24G not patent and was discontinued; awaiting midline insertion from Cheko Blake. Bed in lowest position, call light within reach, side rails up x2. Will continue to monitor throughout the night.
[2022-04-12] MEDS: ATORVASTATIN 10 MG TABLET PO SCH (22:57)
[2022-04-13] VITALS: BP 156/116
--- NOTE | 2022-04-13 01:11 | NUR ---
RN Note Dr. Cheko Blake at bedside inserting midline.
[2022-04-13] MEDS: HYDROMORPHONE 1 MG/1 ML DISP.SYRIN IV PRN ×5 (01:14→21:34)
[2022-04-13] MEDS: ONDANSETRON HCL/PF 4 MG/2 ML VIAL IVP PRN (01:14)
--- NOTE | 2022-04-13 01:14 | NUR ---
RN Note Pt is feeling nauseous and reports of a 10/10 pain. Pt administered Zofran and hydromorphone.
--- NOTE | 2022-04-13 01:45 | NUR ---
RN Note With midline inserted, administered 2100 scheduled meds pantoprazole and rocephin IV.
[2022-04-13] MEDS: CEFTRIAXONE 1 G in IV D5W 50 ML IV SCH ×2 (01:47→21:33)
[2022-04-13] MEDS: PANTOPRAZOLE 40 MG VIAL IV SCH ×3 (01:47→21:33)
[2022-04-13] MEDS: IV LR 1000 ML 1,000 ML IV PRN (01:52)
[2022-04-13 02:11] LABS: HEMATOCRIT 31 % (33-45); HEMOGLOBIN 10.2 g/dL (11.5-14.8); MEAN CORPUSCULAR HGB CONC 34 g/dl (31.0-36.0); MEAN CORPUSCULAR VOLUME 81 fL (82-100); PLATELET COUNT (AUTO) 182 K/uL (150-450); RED BLOOD CELL COUNT(AUTO) 3.75 MIL/uL (4.0-5.2); WHITE BLOOD COUNT (AUTO) 10.3 K/uL (4.3-11.0)
[2022-04-13] MEDS: VANCOMYCIN 1 GM in IV D5W 250 ML IV SCH ×2 (02:28→17:27)
[2022-04-13 04:00] VITALS: BP 149/113
--- NOTE | 2022-04-13 07:08 | NUR ---
SNOW PLOW TRACTOR OPERATOR CLOSING NOTE PT REMAINS IN BED, AWAKE, A&O X4, CALM, COOPERATIVE; SLEPT INTERMITTENTLY THROUGHOUT THE NIGHT. ON 2L NC WITH O2SAT RANGING FROM 95%-97%; PT SHOWED NO S/S OF RESP DISTRESS, NO SOB OR COUGH, NON-LABORED AND EQUAL BREATHING. ATTACHED TO EXTERNAL MONITOR; NOTED TO HAVE AN EPISODE OF HIGH HR OF 103 EARLIER IN SHIFT BUT RETURNED TO SR WITH HR RANGING FORM 91-96. TIMI MIDLINE INTACT AND PATENT, FLUSHES EASILY WITH NO RESISTANCE; CURRENTLY HAS LR RUNNING AT 100 ML/HR. ALL DUE MEDS AND FLUDIS ADMINISTERED DURING THE NIGHT. BED IN LOWEST POSITION, CALL LIGHT WITHIN REACH, SIDE RAILS UP X2. WILL ENDORSE TO DAYSHIFT NURSE TO CONTINUE CARE.
[2022-04-13 07:44] LABS: CREATININE 0.9 mg/dL (0.6-1.3); POTASSIUM 3.1 mmol/L (3.5-5.1)
[2022-04-13 08:00] VITALS: BP 154/74
[2022-04-13] MEDS: VENLAFAXINE XR 150 MG CAP.SR.24H PO SCH (08:57)
[2022-04-13] MEDS: MAGNESIUM OXIDE 400 MG TABLET PO SCH (08:57)
[2022-04-13] MEDS: BLOOD SUGAR DIAGNOSTIC 1 EACH STRIP IN SCH ×4 (08:58→21:50)
[2022-04-13] MEDS: AMLODIPINE BESYLATE 5 MG TABLET PO SCH (08:58)
[2022-04-13] MEDS ORDERED: POTASSIUM CHLORIDE 20 MEQ TAB.PRT.SR PO SCH (10:00)
[2022-04-13] MEDS ORDERED: POTASSIUM CHLORIDE 10 MEQ/50 ML PREMIXED IVPB FOR PERIPHERAL LINE IV SCH (15:00)
[2022-04-13] MEDS: POTASSIUM CHLORIDE 10 MEQ/50 ML PREMIXED IVPB FOR PERIPHERAL LINE IV SCH ×4 (15:26→19:38)
[2022-04-13 16:00] VITALS: BP 134/86
[2022-04-13] MEDS ORDERED: hydrALAZINE HCL IV 20 MG VIAL IV PRN (19:00)
[2022-04-13] MEDS ORDERED: LORAZEPAM 1 MG TABLET PO PRN (19:00)
[2022-04-13 20:00] VITALS: BP 122/87
--- NOTE | 2022-04-13 21:00 | NUR ---
MS RN Opening Note Pt received in bed, awake, A&O x4, watching TV, calm, cooperative. Pt noted to be on 2L NC, no SOB noted, no cough, no other s/s of other resp distress; non-labored annd equal breathing; current O2sat of 93%. VSS, will continue to monitor as needed. From last night, TIMI midline was infiltrated but Dr. Blake able to establish new one on SONNY; SONNY midline intact and patent, flushes easily with no resistance, currently has KCl 10 mEq running. Bed in lowest position, call light within reach, side rails up x2. Will continue to monitor throughout the night.
[2022-04-13] MEDS: ATORVASTATIN 10 MG TABLET PO SCH (21:33)
--- NOTE | 2022-04-13 21:34 | NUR ---
RN Note Pt complains of an 8/10 abdominal pain that's described as aching and requests for dilaudid. pt administered dilaudid 1 mg. Will monitor for effectiveness
[2022-04-14] VITALS: BP 150/69
[2022-04-14 02:38] LABS: HEMATOCRIT 30 % (33-45); HEMOGLOBIN 9.7 g/dL (11.5-14.8); MEAN CORPUSCULAR HGB CONC 33 g/dl (31.0-36.0); MEAN CORPUSCULAR VOLUME 82 fL (82-100); PLATELET COUNT (AUTO) 179 K/uL (150-450); RED BLOOD CELL COUNT(AUTO) 3.62 MIL/uL (4.0-5.2); WHITE BLOOD COUNT (AUTO) 11.6 K/uL (4.3-11.0)
[2022-04-14] MEDS: VANCOMYCIN 1 GM in IV D5W 250 ML IV SCH ×2 (03:49→16:17)
[2022-04-14 04:00] VITALS: BP 134/59
[2022-04-14] MEDS: IV LR 1000 ML 1,000 ML IV PRN (06:35)
--- NOTE | 2022-04-14 06:58 | NUR ---
MS RN Closing Note Pt remains in bed, awake, A&O x4, calm, cooperative. Reports that she didn't get much sleep last night. Remains on 2L NC; pt gets SOB when ambulating from bed to the bathroom and back. No other s/s of resp distress; non-labored and equal breathing; O2sat ranged from 93%-95%. VSS throughout the whole night with no significant changes. SONNY midline intact and patent, flushes easily with no resistance, has LR running at 100 ml/hr. All due meds administered during the night. Bed in lowest position, call light within reach, side rails up x2. Will endorse to dayshift nurse to continue care.
[2022-04-14 07:25] LABS: BASOPHILS % (AUTO) 0.4 % (0.0-2.0); EOSINOPHILS % (AUTO) 0.9 % (0.0-6.0); HEMATOCRIT 30 % (33-45); HEMOGLOBIN 9.9 g/dL (11.5-14.8); LYMPHOCYTES # (AUTO) 1.3 K/uL (0.8-4.8); LYMPHOCYTES % (AUTO) 14.1 % (20.0-44.0); MEAN CORPUSCULAR HGB CONC 33 g/dl (31.0-36.0); MEAN CORPUSCULAR VOLUME 82 fL (82-100); MONOCYTES # (AUTO) 0.5 K/uL (0.1-1.30); MONOCYTES % (AUTO) 5.5 % (2.0-12.0); NEUTROPHILS # (AUTO) 7.6 K/uL (1.8-8.9); NEUTROPHILS % (AUTO) 79.1 % (43.0-81.0); PLATELET COUNT (AUTO) 193 K/uL (150-450); RED BLOOD CELL COUNT(AUTO) 3.63 MIL/uL (4.0-5.2); WHITE BLOOD COUNT (AUTO) 9.5 K/uL (4.3-11.0)
--- NOTE | 2022-04-14 07:30 | NUR ---
MS RN Opening Note MS RN OPENING NOTES RECEIVED PATIENT LYING COMFORTABLY IN BED, SLEEPING. PATIENT IS A/O X4. CURRENTLY ON 2L NC AND ABLE TO TOLERATE IT WELL, NO SOB, RESPIRATORY DISTRESS, NON-LABORED AND EQUAL BREATHING. VITAL SIGNS IS WITHIN NORMAL LIMITS. IV IN R UA MIDLINE, PATENT AND INTACT, FLUSHES EASILY WITH NO RESISTANCE. SAFETY MEASURES INITIATED ALL TIMES. WILL CONTINUE TO MONITOR FOR ALONDRA.
[2022-04-14 07:49] LABS: CREATININE 0.9 mg/dL (0.6-1.3); MAGNESIUM 1.6 mg/dL (1.8-2.4); POTASSIUM 3.5 mmol/L (3.5-5.1)
[2022-04-14] MEDS: HYDROMORPHONE 1 MG/1 ML DISP.SYRIN IV PRN ×3 (07:56→20:02)
--- NOTE | 2022-04-14 07:57 | NUR ---
RN NOTE PT REPORTS OF A 10/10 ABDOMINAL PAIN AND REQUESTS FOR HER DILAUDID. PT ADMINISTERED1 MG OF DILAUDID
[2022-04-14 08:00] VITALS: BP 134/59
[2022-04-14] MEDS: BLOOD SUGAR DIAGNOSTIC 1 EACH STRIP IN SCH ×4 (08:36→21:53)
[2022-04-14] MEDS: K PHOS NEUTRAL 250 MG TABLET PO ONE ×2 (09:31→09:45)
[2022-04-14] MEDS: AMLODIPINE BESYLATE 5 MG TABLET PO SCH (09:32)
[2022-04-14] MEDS: MAGNESIUM OXIDE 400 MG TABLET PO SCH (09:32)
[2022-04-14] MEDS: VENLAFAXINE XR 150 MG CAP.SR.24H PO SCH (09:32)
[2022-04-14] MEDS: PANTOPRAZOLE 40 MG VIAL IV SCH ×2 (09:34→20:02)
[2022-04-14 12:00] VITALS: BP 110/46
--- NOTE | 2022-04-14 15:00 | NUR ---
PATIENT REFUSED TO SIGN EGD CONSENT UNLESS SHE TALKS TO DR. FLORES AND ANAESTHESIA,OR AND DR. FLORES NOTIFIED,KEEP NPO FOR NOW.
[2022-04-14 16:00] VITALS: BP 110/46
--- NOTE | 2022-04-14 17:00 | NUR ---
PATIENT ANXIOUS SPOKE WITH NURSING HAND ENGRAVER AND DEMANDING TO TALK TO GI /ANAESTHESIA PRIOR TO PROCEDURE.PER OR ANAESTHESIA WILL COME AT 7 PM AND TALK TO PT. ,KEEP NPO FOR NOW.
--- NOTE | 2022-04-14 19:45 | NUR ---
RN NOTE DR DE DIOS CAME TO SEE PT. PT STILL REFUSED EGD.
--- NOTE | 2022-04-14 19:48 | NUR ---
MS RN CLOSING NOTES PATIENT IS LYING IN BED, SLEEPING. PATIENT IS A/O X4. CURRENTLY ON 2L NC AND ABLE TO TOLERATE IT WELL, NO SOB, RESPIRATORY DISTRESS, NON-LABORED AND EQUAL BREATHING. VITAL SIGNS IS WITHIN NORMAL LIMITS. IV IN R UA MIDLINE, PATENT AND INTACT, FLUSHES EASILY WITH NO RESISTANCE. PATIENT REFUSED TO SIGN THE CONSENT FOR EGD PROCEDURE, AND INSISTING TO TALK TO HER PRIMARY CARE PROVIDER. CURRENTLY IN NPO AND WAITING FOR FURTHER ORDERS. SAFETY MEASURES INITIATED ALL TIMES. WILL ENDORSE TO INCOMING SHIFT FOR ALONDRA.
[2022-04-14 20:00] VITALS: BP 128/80
--- NOTE | 2022-04-14 20:00 | NUR ---
RN NOTE PT AWAKE AOX4. ON O2 AT 2L VIA NC. NOT IN ANY DISTRESS. PT COMPLAINED OF 8/10 ABDOMINAL PAIN. DENIES SOB. ON IVFLUIDS OF LR RUNNING AT 100ML/HR. ALL SAFETY MEASURES IN PLACE. WILL CONTINUE TO MONITOR.
[2022-04-14] MEDS: CEFTRIAXONE 1 G in IV D5W 50 ML IV SCH (21:10)
[2022-04-14] MEDS: ATORVASTATIN 10 MG TABLET PO SCH (22:00)
[2022-04-15] MEDS: HYDROMORPHONE 1 MG/1 ML DISP.SYRIN IV PRN ×2 (00:19→04:42)
[2022-04-15] MEDS: VANCOMYCIN 1 GM in IV D5W 250 ML IV SCH (03:22)
[2022-04-15] MEDS: IV LR 1000 ML 1,000 ML IV PRN (03:28)
[2022-04-15 04:00] VITALS: BP 142/74
--- NOTE | 2022-04-15 05:08 | NUR ---
RN NOTE PT COMPLAINED OF SORE THROAT, DENIES SOB OR COUGH, AFEBRILE. NOTIFIED MARGARINE MAKER FRANKLYN, ORDERED CEPACOL PRN.
[2022-04-15] MEDS ORDERED: MENTHOL/CETYLPYRD (CEPACOL) 1 LOZ LOZENGE ONE (05:23)
[2022-04-15] MEDS ORDERED: MENTHOL/CETYLPYRD (CEPACOL) 1 LOZ LOZENGE PO PRN (05:30)
--- NOTE | 2022-04-15 06:45 | NUR ---
RN NOTE PT TOLERATES O2 AT 2L VIA NC. NOT IN ANY DISTRESS. DENIES SOB. DILAUDID GIVEN NEEDED FOR PAIN, RELIEVED WITH PAIN. CEPACOL WAS GIVEN ORDERED. CONTINUE ON IVFLUID OF LR AT 100ML/HR. SONNY ML PATENT AND INTACT. PT ABLE TO MAKE NEEDS KNOWN. AMBULATES T RESTROOM. REMAIN AFEBRILE. WILL ENDORSE TO NEXT SHIFT NURSE FOR ALONDRA.
[2022-04-15 07:27] LABS: BASOPHILS % (AUTO) 0.6 % (0.0-2.0); EOSINOPHILS % (AUTO) 1.4 % (0.0-6.0); HEMATOCRIT 28 % (33-45); HEMOGLOBIN 9.2 g/dL (11.5-14.8); LYMPHOCYTES # (AUTO) 1.2 K/uL (0.8-4.8); LYMPHOCYTES % (AUTO) 18.2 % (20.0-44.0); MEAN CORPUSCULAR HGB CONC 34 g/dl (31.0-36.0); MEAN CORPUSCULAR VOLUME 81 fL (82-100); MONOCYTES # (AUTO) 0.6 K/uL (0.1-1.30); MONOCYTES % (AUTO) 8.9 % (2.0-12.0); NEUTROPHILS # (AUTO) 4.8 K/uL (1.8-8.9); NEUTROPHILS % (AUTO) 70.9 % (43.0-81.0); PLATELET COUNT (AUTO) 185 K/uL (150-450); RED BLOOD CELL COUNT(AUTO) 3.41 MIL/uL (4.0-5.2); WHITE BLOOD COUNT (AUTO) 6.8 K/uL (4.3-11.0)
[2022-04-15 07:39] LABS: CALCIUM, SERUM 8.9 mg/dL (8.5-10.1); CREATININE 0.9 mg/dL (0.6-1.3); MAGNESIUM 1.7 mg/dL (1.8-2.4); PHOSPHORUS 2.8 mg/dL (2.5-4.9)
--- NOTE | 2022-04-15 07:47 | NUR ---
RN OPENING NOTE PATIENT RECEIVED IN BED, AO X 4, ABLE TO RESPONDS ALL STIMULI. IN NO ACUTE DISTRESS NOTED. RESPIRATORY EVEN AND UNLABORED ON OXYGEN AT 2Ls VIA NC. SKIN IS WARM TO TOUCH, KEEP CLEAN/DRY. KEPT ELEVATED HOB FOR ENSURE AIRWAY AND ASPIRATION PRECAUTION, ALSO LOWEST POSITION OF THE BED, S/R UP X 3, BED ALARM IS ON AT ALL THE TIMES. ALL SAFETY PRECAUTION APPLIED. CALL LIGHT WITHIN REACH, WILL CONTINUE TO MONITOR.
[2022-04-15 07:52] LABS: POTASSIUM 2.6 mmol/L (3.5-5.1)
[2022-04-15 08:00] VITALS: BP 132/52
[2022-04-15] MEDS: VENLAFAXINE XR 150 MG CAP.SR.24H PO SCH (09:00)
[2022-04-15] MEDS: MAGNESIUM OXIDE 400 MG TABLET PO SCH (09:00)
[2022-04-15] MEDS ORDERED: POTASSIUM CHLORIDE 20 MEQ POWDER PACKET PO SCH (09:00)
[2022-04-15] MEDS: PANTOPRAZOLE 40 MG VIAL IV SCH (09:00)
[2022-04-15] MEDS: AMLODIPINE BESYLATE 5 MG TABLET PO SCH (09:00)
[2022-04-15] MEDS ORDERED: POTASSIUM CHLORIDE 20 MEQ TAB.PRT.SR PO SCH (09:00)
[2022-04-15] MEDS: BLOOD SUGAR DIAGNOSTIC 1 EACH STRIP IN SCH (10:16)
[2022-04-15] MEDS ORDERED: PANT40TA2 PO (10:17)
[2022-04-15] MEDS ORDERED: CIPR500T5 PO (10:19)
[2022-04-15] MEDS ORDERED: METR500T PO ×2 (10:19→10:20)
[2022-04-15] MEDS ORDERED: Magnesium 1GM/D5W 100ML PREMIX 100 ML IV SCH (10:30)
--- NOTE | 2022-04-15 10:56 | NUR ---
PATIENT DISCHARGE TO HOME, REFUSED ALL MORNING MEDICATIONS, SHE SAID TO PRIMARY NURSE "GO AWAY ASSHOLES!' PATIENT REFUSED SIGN ON EXIT CARE, AND REMOVE ID BAND STATED "DON'T TOUCH ME, I'LL CALL POLICE." NO ONE ABLE TO TAKE OFF ID BAND. ALL VITAL SIGNS ARE STABLE, DOCUMENTED IN INTERVENTION. INFORMED PATIENT TO PIC UP NEW MEDICATION. REFUSED WHEEL CHAIR, PATIENT STABLE GAIT.
== END 2022-04-15 10:57 | disposition home or self-care (01) | DRG 377 ==
LOC: ER 16:37 → TELE1 23:15 → MEDSG1 04-13 08:20
PROVIDERS: ADMIT Nurse Practitioner Acute Care; ATTEND Internal Medicine
PROC: 05H933Z Insertion of Infusion Device into Right Brachial Vein, Percutaneous Approach (ICD-10-PCS; principal; 2022-04-11)
DX: K92.2 Gastrointestinal hemorrhage, unspecified (principal); N17.0 Acute kidney failure with tubular necrosis; A04.9 Bacterial intestinal infection, unspecified; N39.0 Urinary tract infection, site not specified; Z68.41 Body mass index [BMI] 40.0-44.9, adult; E87.1 Hypo-osmolality and hyponatremia; Z95.2 Presence of prosthetic heart valve; Z79.01 Long term (current) use of anticoagulants; I35.0 Nonrheumatic aortic (valve) stenosis; E11.9 Type 2 diabetes mellitus without complications; E66.01 Morbid (severe) obesity due to excess calories; Z90.710 Acquired absence of both cervix and uterus; Z90.49 Acquired absence of other specified parts of digestive tract; Z98.891 History of uterine scar from previous surgery; Z79.82 Long term (current) use of aspirin; Z79.899 Other long term (current) drug therapy; Z96.643 Presence of artificial hip joint, bilateral; E87.6 Hypokalemia; R74.8 Abnormal levels of other serum enzymes; Z87.19 Personal history of other diseases of the digestive system; I10 Essential (primary) hypertension; E78.5 Hyperlipidemia, unspecified; F32.A Depression, unspecified; K21.9 Gastro-esophageal reflux disease without esophagitis; Z98.1 Arthrodesis status; Z79.84 Long term (current) use of oral hypoglycemic drugs; Z20.822 Contact with and (suspected) exposure to COVID-19
CPT/HCPCS: 36415; 74018; 80048-TC; 80053-TC; 80061-TC; 80076-TC; 80202-TC; 81001; 82272-TC; 82962-TC; 83540-TC; 83690-TC; 83735-TC; 84100-TC; 84439-TC; 84443-TC; 85025-TC; 85027-TC; 85045-TC; 85730-TC; 86850-TC; 87045-TC; 87086-TC; 94799-TC; C9113; C9803; G0378; J0696; J1170; J1815; J2405; J3370; J3475; J3480; J7030; J7050; J7060; J7120